=== PATIENT | male | born 1955 | race Caucasian/White ===

== ENCOUNTER 2017-04-27 14:50 | Inpatient (IN) | payer SELFPAY ==
[2017-04-27] MEDS ORDERED: IBUPROFEN 400 MG TABLET PO ONE (15:05)
[2017-04-27] MEDS ORDERED: IBUPROFEN 400 MG TABLET ONE (15:15)
[2017-04-27 15:38] LABS: Hematocrit 40.3 % (42.0-52.0); Hemoglobin 14.2 gm/dL (13.5-18.0); Mean Cell Volume 89.2 fl (78-100); Mean Corpuscular Hemoglobin 31.4 pg (27-31); Mean Corpuscular Hgb Conc 35.2 g/dl (32-36); Mean Platelet Volume 10.1 fl (6.0-9.5); Neutrophil # 11.5 K/mm3 (1.3-6.0); Platelet Count 221 K/mm3 (150-450); Red Blood Count 4.52 M/mm3 (4.7-6.0); Red Cell Distribution Width 12.7 % (11.5-14.0); White Blood Count 13.3 K/mm3 (4.0-10.5)
[2017-04-27] MEDS: SODIUM CHLORIDE IV PRN ×2 (15:44→16:52)
[2017-04-27 15:46] LABS: Albumin * 2.7 gm/dl (3.4-5.0); Bilirubin, Total 0.4 mg/dL (0.0-1.1); Ca. Corrected For Albumin 8.7 mg/dL (8.4-10.2); Potassium 3.6 mmol/L (3.4-4.6); Total Protein 7.1 gm/dL (6.2-8.2)
[2017-04-27 15:52] LABS: Anion Gap 14.5 mmol/L (6.8-13.8); Carbon Dioxide 23.1 mmol/L (24-32.6)
[2017-04-27] MEDS ORDERED: PIPERACILLIN SODIUM/TAZOBACTAM 3.375 GM in DEXTROSE 5 % IN WATER 100 ML IV ONE ×2 (16:57)
[2017-04-27] MEDS ORDERED: VANCOMYCIN HCL 1 GM in DEXTROSE 5 % IN WATER 250 ML IV ONE ×2 (18:35)
--- NOTE | 2017-04-27 18:42 | ERNOTE ---
Lower Extremity HPI - Narrative Date of Service: 04/27/17 - General Lower Extremities Pain: other: right - foot Time Seen by Provider: 04/27/17 15:33 Source: patient, family Exam Limitations: no limitations - Immun/Allergies/Home Medications Immunizations: IMMUNIZATION HX Immunizations Up to Date Yes Allergies/Adverse Reactions: Allergies Allergy/AdvReac Type Severity Reaction Status Date / Time No Known Allergies Allergy Unverified 04/27/17 15:03 Home Medications: HOME MEDICATIONS Enalapril Maleate [Vasotec] 5 mg PO DAILY 04/27/17 [Last Taken Unknown] - History of Present Illness Narrative: About one week ago, his boot wore an ulcer in the bottom of his distal right foot. He kept working. 2 days ago, it got worse, red and hot. He kept working. He began to get hot, cold, chilled, and sweating. He kept working. Today, even worse. His foot became very swollen. Now his temperature is 102. Occurred: other Location of Incident: home Method of Injury: Reports: other Reason for Fall: Reports: other - no fall Modifying Factors - (Improves): Reports: other - nothing Modifying Factors - (Worsens): Reports: other - walking Associated Symptoms: Reports: dizzy/light headedness, weakness Other Injuries: Reports: none Review of Systems - Review of Systems Constitutional: Present: fever, chills, diaphoresis, malaise EYE: Present: no symptoms reported ENT: Present: no symptoms reported Respiratory: Present: no symptoms reported Cardiology: Present: no symptoms reported Gastrointestinal/Abdominal: Present: no symptoms reported Genitourinary: Present: no symptoms reported Musculoskeletal: Present: no symptoms reported Skin: Present: See HPI Neurological: Present: dizziness/light-headedness, weakness Endocrine: Present: no symptoms reported Hematologic/Lymphatic: Present: no symptoms reported Psych: Present: no symptoms reported All Other Systems: All systems neg except as marked - Patient's Past Medical History Patient History - Medical: No pertinent hx Patient History - Cardiac/Respiratory: Hypertension Patient History - Cancer: No Hx of Cancer Patient History - Surgical Procedures: Appendectomy - Social History Smoking Status: Never smoker Have you smoked in the past 12 months: No - Immunizations Immunizations Up to Date: Yes Physical Exam - Physical Exam General Appearance: Present: wd/wn, alert, no apparent distress Head Exam: Present: normal inspection Eye Exam: Normal inspection: bilateral, PERRL: bilateral, EOMI: bilateral Ears, Nose, Throat: Present: normal ENT inspection Neck: Present: normal inspection, nontender Respiratory: Present: no respiratory distress, normal breath sounds Cardiovascular/Chest: Present: no murmur, tachycardia Gastrointestinal/Abdominal: Present: normal bowel sounds, nontender, nondistended, soft, no organomegaly Back Exam: Present: normal inspection Extremity Exam: Present: other - right distal foot very swollen, red and hot. ulcer, plantar surface, distal, over second and third metatarsal Neurological Exam: Present: alert, oriented, normal mood/affect Skin Exam: Present: normal color, warm/dry Lymphatic Exam: Present: no adenopathy ED Progress - Results and Orders Patient's Lab Results:: I have reviewed the patient's lab results. - Vital Signs Patient's Vital Signs:: I have reviewed the patient's vital signs. Vital Signs: Vital Signs 04/27/17 04/27/17 04/27/17 14:59 16:55 18:07 Temperature 38.6 C H 37.5 C 37.0 C Pulse Rate 127 H 105 H 92 Respiratory 14 16 16 Rate Blood Pressure 154/94 136/79 115/77 O2 Sat by Pulse 97 95 97 Oximetry - X-Ray X-Ray #1 X-Ray: foot Interpretation: Reviewed by me - osteomyelitis - Progress/Reassessment Chief Complaint: Foot Injury/Pain Progress Note-Subjective: 04/27/17 18:[address] Huntley who agreed to accept the patient as an acute admission. I spoke with Cristopher Caal manager combination ortho, who agreed to accept the patient as manager combination ortho consult. I spoke with the patient and his , who agreed to be admitted. Departure Clinical Impression: Osteomyelitis of right foot Qualifiers: Osteomyelitis type: other acute Qualified Code(s): M86.171 - Other acute osteomyelitis, right ankle and foot - Departure Disposition: [facility] Condition: Good
[2017-04-27] MEDS ORDERED: PIPERACILLIN SODIUM/TAZOBACTAM 3.375 GM in DEXTROSE 5 % IN WATER 100 ML IV SCH ×2 (18:45)
[2017-04-27] MEDS: NORMAL SALINE 3,000 ML IV PRN ×3 (19:21→21:31)
[2017-04-27] MEDS: ENOXAPARIN SODIUM 40 MG/0.4 ML SYRG SC SCH (20:19)
[2017-04-27] MEDS: ACETAMINOPHEN 325 MG TABLET PO PRN (20:19)
--- NOTE | 2017-04-27 20:36 | HP ---
Chief Complaint - Chief Complaint Date of Service: 04/27/17 Time of Service: 20:36 Chief Complaint: right foot osteomyelitis History of Present Illness: Johnny is a 61 year old male patient of Dr. Purvis with a PMH of HTN who presented to the ER today with c/o fever, chills and purulent drainage coming from right distal foot. States that feet became wet with pus coming out of the right distal foot, palm side, 1 week ago. patient attempted to treat at home with peroxide soaks. Patient denies any feet pain. States no medical insurance so did not seek medical care initially. Right distal foot continues to worsen, to the point the patient developed fevers and chills for the past 2 days. ER eval revealed wbc elevated at 13.3 with 86% neutrophils. esr 76, crp 14.3, lactic acid/procalcitonin wnl, cmp remarkable for ast 51, alt 96 and serum glucose 150. right foot xray shows diffuse soft tissue swelling of 2nd toe with plantar skin ulceration seen at base of 2nd toe and associated erosive changes of 2nd metatarsal head c/w osteomyelitis. Patient denies history of diabetes or diabetic neuropathy. Patient to be admitted for right toe osteomyelitis / right foot cellulitis and orthopaedic consult. - Patient's Past Medical History Patient History - Medical: No pertinent hx Patient History - Cardiac/Respiratory: Hypertension Patient History - Cancer: No Hx of Cancer Patient History - Surgical Procedures: Appendectomy - Family History Mother Family History - Medical: , Rheumatoid Arthritis Family History - Cardiac/Respiratory: CVA/Stroke Father Family History - Medical: - Social History Living Situations: alone Abuse History: No History of abuse Psych History: No pertinent hx Smoking Status: Never smoker Have you smoked in the past 12 months: No Do you dip or chew tobacco: No Patient requests Smoking Cessation Consult: No Initiate information on Smoking Cessation: No Alcohol Use: rarely Drug Use: none - Immunizations Immunizations Up to Date: Yes Review Of Systems (GEN) - Review of Systems Generalized/Overall Review: Present: No Symptoms Reported EENTM: Present: No Symptoms Reported Respiratory: Present: No Symptoms Reported Cardiac: Present: No Symptoms Reported Abdominal: Present: No Symptoms Reported Genitourinary: Present: No Symptoms Reported Musculoskeletal: Present: No Symptoms Reported Neurological: Present: No Symptoms Reported Skin: Present: Lesions, Other - ulceration on palm-side right foot with pus Endocrine: Present: No Symptoms Reported Misc: All systems neg except as marked Immunizations: IMMUNIZATION HX Immunizations Up to Date Yes Allergies/Adverse Reactions: Allergies Allergy/AdvReac Type Severity Reaction Status Date / Time No Known Allergies Allergy Unverified 04/27/17 15:03 Home Medications: HOME MEDICATIONS Enalapril Maleate [Vasotec] 5 mg PO DAILY 04/27/17 [Last Taken 04/27/17 06:00] Multivit-Min/FA/Lycopen/Lutein [Centrum Silver Men Tablet] 1 each PO DAILY 04/27 [Last Taken 04/26/17 20:30] Exam - Exam Vital Signs: Vital Signs - Last Taken Temp 36.4 C L 04/27/17 18:44 Pulse 99 04/27/17 18:44 Resp 20 04/27/17 18:44 BP 150/93 04/27/17 18:44 Pulse Ox 99 04/27/17 18:44 Constitutional: Present: Alert, Oriented x3, Cooperative, No distress ENT Exam: Present: hearing grossly normal Eye Exam: bilateral eye: normal inspection Neck: Present: full range of motion, supple Breasts: Present: Exam deferred Respiratory: Present: lungs clear, normal breath sounds, no respiratory distress Cardiovascular/Chest: Present: normal peripheral pulses, regular rate, rhythm, no chest tenderness Peripheral Pulses: dorsalis-pedis (R): 2+, dorsalis-pedis (L): 2+, radial (R): 2 +, radial (L): 2+ Abdomen: Present: soft, nontender, nondistended /Rectal: Present: Exam deferred Extremity: Present: no calf tenderness, pelvis stable Skin Exam: Present: warm/dry, no cyanosis, other - on palm side of right foot is 2.5 cm x 2.5 cm pus filled ulceration with surrounding erythema just below 2nd toe. Diagnostic Studies: Laboratory Results WBC 13.3 K/mm3 (4.0-10.5) H 04/27/17 15:10 RBC 4.52 M/mm3 (4.7-6.0) L 04/27/17 15:10 Hgb 14.2 gm/dL (13.5-18.0) 04/27/17 15:10 Hct 40.3 % (42.0-52.0) L 04/27/17 15:10 MCV 89.2 fl (78-100) 04/27/17 15:10 MCH 31.4 pg (27-31) H 04/27/17 15:10 MCHC 35.2 g/dl (32-36) 04/27/17 15:10 RDW 12.7 % (11.5-14.0) 04/27/17 15:10 Plt Count 221 K/mm3 (150-450) 04/27/17 15:10 MPV 10.1 fl (6.0-9.5) H 04/27/17 15:10 Immature Gran % (Auto) 1.60 % (0.001-0.429) H 04/27/17 15:10 Immature Gran # (Auto) 0.21 K/mm3 (0.000-0.0310) H 04/27/17 15:10 Neutrophils % 86.0 % (42-75.0) H 04/27/17 15:10 Lymphocytes % 4.8 % (20-51) L 04/27/17 15:10 Monocytes % 6.9 % (0.0-9) 04/27/17 15:10 Eosinophils % 0.3 % (0.0-3.0) 04/27/17 15:10 Basophils % 0.4 % (0.0-1.0) 04/27/17 15:10 Nucleated RBC % 0.0 k/mm3 (0-1) 04/27/17 15:10 Neutrophils # 11.5 K/mm3 (1.3-6.0) H 04/27/17 15:10 Lymphocytes # 0.6 k/mm3 (1.5-3.5) L 04/27/17 15:10 Monocytes # 0.9 k/mm3 (0.0-1.0) 04/27/17 15:10 Eosinophils # 0.0 k/mm3 (0.0-0.7) 04/27/17 15:10 Absolute Basophils 0.1 k/mm3 (0.0-0.1) 04/27/17 15:10 ESR 76 mm/hr (0-10) H 04/27/17 15:10 Sodium 135 mmol/L (132-142) 04/27/17 15:10 Plasma Sodium 136 mmol/L (130-142) 04/27/17 15:10 Potassium 3.6 mmol/L (3.4-4.6) 04/27/17 15:10 Chloride 101 mmol/L (97-106) 04/27/17 15:10 Carbon Dioxide 23.1 mmol/L (24-32.6) L 04/27/17 15:10 Anion Gap 14.5 mmol/L (6.8-13.8) H 04/27/17 15:10 BUN 15 mg/dL (6-23) 04/27/17 15:10 Creatinine 0.94 mg/dL (0.4-1.4) 04/27/17 15:10 Est GFR (Non-Af Amer) 87 mL/min (60-130) 04/27/17 15:10 BUN/Creatinine Ratio 16.0 (9.0-21.6) 04/27/17 15:10 Random Glucose 150 mg/dL (70-110) H 04/27/17 15:10 Lactic Acid, Venous 1.4 mmol/L (0.4-1.9) 04/27/17 15:10 Calcium 8.0 mg/dL (7.9-10.9) 04/27/17 15:10 Calcium Adj for Albumin 8.7 mg/dL (8.4-10.2) 04/27/17 15:10 Total Bilirubin 0.4 mg/dL (0.0-1.1) 04/27/17 15:10 AST 51 U/L (0-48) H 04/27/17 15:10 ALT 96 U/L (19-67) H 04/27/17 15:10 Alkaline Phosphatase 102 U/L (50-170) 04/27/17 15:10 C-Reactive Prot, Quant 14.3 mg/dL (0.0-0.9) H 04/27/17 15:10 Total Protein 7.1 gm/dL (6.2-8.2) 04/27/17 15:10 Albumin 2.7 gm/dl (3.4-5.0) L 04/27/17 15:10 Procalcitonin 0.27 ng/mL (0.05-0.50) 04/27/17 15:10 Assessment/Plan - Narrative Narrative: Osteomyelitis / cellulitis of right foot - awaiting ortho consult, appreciate their help. - wound culture done in ER shows no growth so far - antibiotics - vancomycin 1 gm iv q 12 hours - Day #1 - zosyn 3.375 mg iv q 8 hours - Day #1 - ? MRI of right foot - ? 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 - Meets SIRS criteria but NOT sepsis criteria - document/suggestion of new infection: soft tissue, bone/joint - SIRS criteria met: - hyperthermia: temp 38.6 - tachycardia: HR 127 in ER - Leukocytosis (wbc>12.0): wbc 13.3 - hyperglycemia in absence of DM: serum glucose 150 - NO additional criteria for Sepsis: lactic acid wnl, sbp drop was 39 ( needs to be >40), creatinine wnl, platelet count wnl, - no low blood pressures or low MAP. - chest xray not done (cannot assess for infiltrates), PT/PTT not done (cannot assess for coagulopathy) - denied foot pain to be since symptoms began, ? underlying undiagnosed diabetes - check hgba1c HTN - vital signs q 4 hours - cont enalapril 5 mg daily Code status: Full Code VTE: lovenox GI proph: protonix po. - Assessment/Plan (1) Osteomyelitis of right foot Problem: Acute Qualifiers: Osteomyelitis type: other acute Qualified Code(s): M86.171 - Other acute osteomyelitis, right ankle and foot (2) Cellulitis of right foot Problem: Acute (3) HTN (hypertension) Problem: Chronic Qualifiers: Hypertension type: essential hypertension Qualified Code(s): I10 - Essential (primary) hypertension
[2017-04-28] MEDS: NORMAL SALINE 1,000 ML IV PRN ×2 (00:04→18:12)
[2017-04-28] MEDS: PIPERACILLIN SODIUM/TAZOBACTAM 3.375 GM in DEXTROSE 5 % IN WATER 100 ML IV SCH ×6 (01:57→18:06)
[2017-04-28 05:55] LABS: Hematocrit 38.2 % (42.0-52.0); Hemoglobin 13.2 gm/dL (13.5-18.0); Mean Cell Volume 90.7 fl (78-100); Mean Corpuscular Hemoglobin 31.4 pg (27-31); Mean Corpuscular Hgb Conc 34.6 g/dl (32-36); Mean Platelet Volume 10.3 fl (6.0-9.5); Platelet Count 192 K/mm3 (150-450); Red Blood Count 4.21 M/mm3 (4.7-6.0); Red Cell Distribution Width 13.1 % (11.5-14.0); White Blood Count 15.3 K/mm3 (4.0-10.5)
[2017-04-28 05:57] LABS: Total Cells Counted 100
[2017-04-28 06:07] LABS: Band 20 % (0-2.0); Dohle Bodies Trace; Lymphocyte 6 % (20-51); Monocyte 1 % (0-9); Neutrophil 73 % (42-75); Neutrophil # 11.2 K/mm3 (1.3-6.0); Platelet Estimate Normal (NORMAL)
[2017-04-28 06:09] LABS: Albumin * 2.1 gm/dl (3.4-5.0); BUN/Creatinine Ratio 11.6 (9.0-21.6); Ca. Corrected For Albumin 8.3 mg/dL (8.4-10.2); Calcium * 7.1 mg/dL (7.9-10.9); Carbon Dioxide 23.6 mmol/L (24-32.6); Potassium 3.6 mmol/L (3.4-4.6); Total Protein 5.8 gm/dL (6.2-8.2)
[2017-04-28 06:43] LABS: Hemoglobin A1C 5.6 % (4.00-6.0)
--- NOTE | 2017-04-28 08:05 | PN ---
Subjective - Date and Time Seen Date: 04/28/17 Time: 06:30 Subjective Narrative: denies needs. states had chills overnight. Objective - Review of Systems Generalized/Overall Review: Reports: Chills, Malaise EENTM: Reports: No Symptoms Reported Respiratory: Reports: No Symptoms Reported Cardiac: Reports: No Symptoms Reported Abdominal: Reports: No Symptoms Reported Genitourinary Symptoms: Reports: No Symptoms Reported Musculoskeletal Complaints: Reports: No Symptoms Reported Neurological: Reports: No Symptoms Reported Skin: Reports: Lesions, Change in Color Endocrine: Reports: No Symptoms Reported Misc: All systems neg except as marked - Vitals Vitals: Last Vital Signs Temp 36.8 C 04/28/17 06:00 Pulse 111 H 04/28/17 06:00 Resp 18 04/28/17 06:00 BP 144/88 04/28/17 06:00 Pulse Ox 96 04/28/17 06:00 - Abnormal Lab Findings Abnormal Lab Findings: Abnormal Lab Results 04/28/17 04/28/17 Range/Units 05:30 05:30 WBC 15.3 H (4.0-10.5) K/mm3 RBC 4.21 L (4.7-6.0) M/mm3 Hgb 13.2 L (13.5-18.0) gm/dL Hct 38.2 L (42.0-52.0) % MCH 31.4 H (27-31) pg MPV 10.3 H (6.0-9.5) fl Band Neuts % (Manual) 20 H (0-2.0) % Lymphocytes % (Manual) 6 L (20-51) % Neutrophils # (Manual) 11.2 H (1.3-6.0) K/mm3 Lymphocytes # (Manual) 0.9 L (1.5-3.5) k/mm3 Chloride 107 H (97-106) mmol/L Carbon Dioxide 23.6 L (24-32.6) mmol/L Anion Gap 14.0 H (6.8-13.8) mmol/L Random Glucose 139 H (70-110) mg/dL Calcium 7.1 L (7.9-10.9) mg/dL Calcium Adj for Albumin 8.3 L (8.4-10.2) mg/dL ALT 95 H (19-67) U/L Total Protein 5.8 L (6.2-8.2) gm/dL Albumin 2.1 L (3.4-5.0) gm/dl - Exam Constitutional: Present: Alert, Oriented x3, Cooperative, No distress ENT Exam: Present: hearing grossly normal Neck: Present: full range of motion, supple Breasts: Present: Exam deferred Respiratory: Present: normal breath sounds, no respiratory distress, no accessory muscle use Cardiovascular/Chest: Present: normal peripheral pulses, regular rate, rhythm, no chest tenderness Abdomen: Present: soft, nontender, nondistended /Rectal: Present: Exam deferred Extremity: Present: normal range of motion, no calf tenderness Skin Exam: Present: warm/dry, no cyanosis, pallor, other - 2.5 cm x 2.5 cm ulceration on sole of right foot at bottom of 2nd toe, pus filled, with surrounding erythema and foul odor. Assessment/Plan Plan Narrative: Osteomyelitis / cellulitis of right foot - awaiting ortho consult, appreciate their help. - spoke with Cristopher with am, will order MRI of right foot to assess. - wound culture done in ER shows no growth so far - antibiotics - vancomycin 1 gm iv q 12 hours - Day #2 - zosyn 3.375 mg iv q 8 hours - Day #2 - ? 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 - ? gram stain - Meets SIRS criteria but NOT sepsis criteria (on admission ) - document/suggestion of new infection: soft tissue, bone/joint - SIRS criteria met: - hyperthermia: temp 38.6 - tachycardia: HR 127 in ER - Leukocytosis (wbc>12.0): wbc 13.3 - hyperglycemia in absence of DM: serum glucose 150 - NO additional criteria for Sepsis: lactic acid wnl, sbp drop was 39 ( needs to be >40), creatinine wnl, platelet count wnl, - no low blood pressures or low MAP. - chest xray not done (cannot assess for infiltrates), PT/PTT not done (cannot assess for coagulopathy) - denied foot pain to be since symptoms began, ? underlying undiagnosed diabetes - check hgba1c HTN - vital signs q 4 hours - cont enalapril 5 mg daily Code status: Full Code VTE: lovenox GI proph: protonix po. - Problems/Diagnosis (1) Osteomyelitis of right foot Problem: Acute Qualifiers: Osteomyelitis type: other acute Qualified Code(s): M86.171 - Other acute osteomyelitis, right ankle and foot (2) Cellulitis of right foot Problem: Acute (3) HTN (hypertension) Problem: Chronic Qualifiers: Hypertension type: essential hypertension Qualified Code(s): I10 - Essential (primary) hypertension
[2017-04-28] MEDS ORDERED: VANCOMYCIN HCL 1 GM in DEXTROSE 5 % IN WATER 250 ML IV SCH ×2 (08:15)
[2017-04-28] MEDS: ENALAPRIL MALEATE 5 MG TABLET PO SCH (08:20)
[2017-04-28] MEDS: PANTOPRAZOLE SODIUM 40 MG TABLET.EC PO SCH (08:23)
[2017-04-28] MEDS: SACCHAROMYCES BOULARDII 250 MG CAPSULE PO SCH ×2 (08:40→20:36)
[2017-04-28] MEDS: VANCOMYCIN HCL 1 GM in DEXTROSE 5 % IN WATER 250 ML IV SCH ×4 (10:00→10:01)
--- NOTE | 2017-04-28 10:42 | CONS ---
[facility] - General Date of Service: 04/28/17 Narrative: Mr. Palomino 7-year-old gentleman seen request of Dr. Huntley for concern of osteomyelitis possible abscess right foot. Patient reports about a week history of swelling and some drainage from the plantar aspect of his right foot. 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 He noted about a week ago some drainage from the plantar aspect of his foot. He reported no pain with this and Working. In the last 24-48 hours started developing fevers and not feeling well. Reports history of a traumatic injury to the foot 30 years ago when a cow stepped on it. He reports a chronic deformity of his second toe related to this. He reports in the past few years his great toe is encroached on to the second toe and started to cause some pressure irritation. He reports no previous history of draining ulcer and denies diabetes. - History of Present Illness Allergies/Adverse Reactions: Allergies No Known Allergies Allergy (Unverified 04/27/17 15:03) Home Medications: Home Medications Medication Instructions Recorded Last Taken Enalapril Maleate [Vasotec] 5 mg PO DAILY 04/27/17 04/27/17 06:00 Multivit-Min/FA/Lycopen/Lutein 1 each PO DAILY 04/27/17 04/26/17 20:30 [Centrum Silver Men Tablet] - Patient's Past Medical History Patient History - Medical: No pertinent hx Patient History - Cardiac/Respiratory: Hypertension Patient History - Cancer: No Hx of Cancer Patient History - Surgical Procedures: Appendectomy - Family History Mother Family History - Medical: , Rheumatoid Arthritis Family History - Cardiac/Respiratory: CVA/Stroke Father Family History - Medical: - Social History Living Situations: alone Abuse History: No History of abuse Psych History: No pertinent hx Smoking Status: Never smoker Have you smoked in the past 12 months: No Do you dip or chew tobacco: No Patient requests Smoking Cessation Consult: No Initiate information on Smoking Cessation: No Alcohol Use: rarely Drug Use: none - Immunizations Immunizations Up to Date: Yes Medications - Medications Current Medications: Current Medications Acetaminophen (Tylenol) 650 mg PO QID PRN PRN Reason: Mild Pain Stop: 05/27/17 18:45 Last Admin: 04/27/17 20:19 Dose: 650 mg Enalapril Maleate (Vasotec) 5 mg PO DAILY [facility] Stop: 05/28/17 09:01 Last Admin: 04/28/17 08:20 Dose: 5 mg Enoxaparin Sodium (Lovenox) 40 mg SC Q24H [facility] Stop: 05/27/17 18:46 Last Admin: 04/27/17 20:19 Dose: 40 mg Sodium Chloride (Sodium Chloride 0.9%) 3,000 mls @ 999 mls/hr IV .Q3H1M PRN PRN Reason: HYDRATION Stop: 05/27/17 15:26 Last Infusion: 04/28/17 00:32 Dose: Infused Piperacillin Sod/Tazobactam (Sod 3.375 gm/ Dextrose/Water) 100 mls @ 25 mls/hr IV Q8H [facility] PRN Reason: Protocol Stop: 05/28/17 02:01 Last Admin: 04/28/17 01:57 Dose: 25 mls/hr Sodium Chloride (Sodium Chloride 0.9%) 1,000 mls @ 75 mls/hr IV .[id number] PRN PRN Reason: HYDRATION Stop: 05/27/17 23:56 Last Admin: 04/28/17 00:04 Dose: 75 mls/hr Vancomycin HCl 1 gm/ Dextrose/ (Water) 250 mls @ 140 mls/hr IV Q12H [facility] PRN Reason: Protocol Stop: 05/28/17 08:16 Last Admin: 04/28/17 08:19 Dose: 140 mls/hr Pantoprazole Sodium (Protonix) 40 mg PO DAILY@0700 [facility] Stop: 05/28/17 07:01 Last Admin: 04/28/17 08:23 Dose: 40 mg Saccharomyces Boulardii (Florastor) 250 mg PO BID [facility] Stop: 05/28/17 09:01 Last Admin: 04/28/17 08:40 Dose: 250 mg Physical Examination - Exam Narrative: Right foot shows significant swelling in the forefoot. Erythema and warmth noted and skin is boggy. Second toe with deformity and marked in swelling. Some sloughing of skin in the web space between second third toe. Plantar aspect of the foot shows small ulceration the base of second metatarsal head and sloughing of skin with apparent purulent material under the skin. With palpation of foot patient reports no pain. Cannot appreciate a dorsalis pedis pulse with the swelling. X-rays reviewed show advanced degenerative changes of the first metatarsal phalangeal joint, dislocation of the second metatarsal phalangeal joint which patient reports to be chronic, mild erosive changes of the metatarsal head. Mr. Chahal white count is elevated about 15,000, CRP of 14.3, sedimentation rate of 76. Hemoglobin A1c has been ordered but is pending. An MRI is been ordered as well but has not been done at this point time. Vital Signs: Vital Signs - Last Taken Temp 36.8 C 04/28/17 06:00 Pulse 111 H 04/28/17 08:20 Resp 18 04/28/17 06:00 BP 144/88 04/28/17 08:20 Pulse Ox 96 04/28/17 06:00 O2 Oxygen Delivery Method Room Air - Results and Findings: Lab/Microbiology results last 24 hrs: Abnormal/Pending Laboratory Last 24 HRS 04/28/17 04/28/17 05:30 05:30 WBC 15.3 H RBC 4.21 L Hgb 13.2 L Hct 38.2 L MCH 31.4 H MPV 10.3 H Band Neuts % (Manual) 20 H Lymphocytes % (Manual) 6 L Neutrophils # (Manual) 11.2 H Lymphocytes # (Manual) 0.9 L Chloride 107 H Carbon Dioxide 23.6 L Anion Gap 14.0 H Random Glucose 139 H Calcium 7.1 L Calcium Adj for Albumin 8.3 L ALT 95 H Total Protein 5.8 L Albumin 2.1 L - Assessments/Findings (1) Cellulitis of right foot Diagnosis(s): Mr. Palomino is currently on Zosyn and vancomycin cover for infection. Pending results of MRI if no abscess to treat with IV antibiotics and may consult Dr. Chapa for wound care. Plan pending MRI. Problem: Acute
[2017-04-28] MEDS ORDERED: LORazepam 2 MG/ML DISP.SYRIN IV STA (13:24)
[2017-04-28] MEDS ORDERED: LORazepam 2 MG/ML DISP.SYRIN ONE (13:30)
[2017-04-28] MEDS: ENOXAPARIN SODIUM 40 MG/0.4 ML SYRG SC SCH (18:08)
[2017-04-28] MEDS: VANCOMYCIN HCL 1.5 GM in DEXTROSE 5 % IN WATER 500 ML IV SCH ×2 (20:37)
[2017-04-29] MEDS: PIPERACILLIN SODIUM/TAZOBACTAM 3.375 GM in DEXTROSE 5 % IN WATER 100 ML IV SCH ×6 (02:34→17:21)
[2017-04-29] MEDS: PANTOPRAZOLE SODIUM 40 MG TABLET.EC PO SCH (06:43)
[2017-04-29] MEDS: VANCOMYCIN HCL 1.5 GM in DEXTROSE 5 % IN WATER 500 ML IV SCH ×4 (06:48→18:49)
[2017-04-29] MEDS: NORMAL SALINE 1,000 ML IV PRN (06:58)
[2017-04-29] MEDS: ENALAPRIL MALEATE 5 MG TABLET PO SCH (09:49)
[2017-04-29] MEDS: SACCHAROMYCES BOULARDII 250 MG CAPSULE PO SCH ×2 (09:49→20:24)
[2017-04-30] MEDS: PIPERACILLIN SODIUM/TAZOBACTAM 3.375 GM in DEXTROSE 5 % IN WATER 100 ML IV SCH ×6 (02:11→17:07)
[2017-04-30] MEDS: NORMAL SALINE 1,000 ML IV PRN ×2 (04:48→15:55)
[2017-04-30] MEDS: VANCOMYCIN HCL 1.5 GM in DEXTROSE 5 % IN WATER 500 ML IV SCH ×4 (07:13→18:29)
[2017-04-30] MEDS: PANTOPRAZOLE SODIUM 40 MG TABLET.EC PO SCH (07:13)
[2017-04-30] MEDS: SACCHAROMYCES BOULARDII 250 MG CAPSULE PO SCH ×2 (09:19→20:24)
[2017-04-30] MEDS: ENALAPRIL MALEATE 5 MG TABLET PO SCH (09:19)
--- NOTE | 2017-04-30 10:31 | PREOP NOTE ---
Preoperative Progress Note - Preoperative Changes Changes noted since H&P was completed.: Plan for I and D of foot abscess.
--- NOTE | 2017-04-30 10:40 | PN ---
Subjective - Date and Time Seen Date: 04/29/17 Time: 11:15 Subjective Narrative: Patient unable to undergo an MRI on 04/28 as he was unable to lie still with lorazepam. Planning to undergo an MRI today with sedation with anesthesia later in the afternoon. X-ray of foot does show osteomyelitis. Patient complains of minimal pain. Objective - Review of Systems Respiratory: Denies: Cough, Shortness of Breath Cardiac: Denies: Chest Pain - Vitals Vitals: 04/29/17 10:47 Temperature 36.8 C Pulse Rate 88 Resp. Rate 18 Blood Pressure 152/86 O2 sat 94 % - Exam Constitutional: Present: Middle aged, Obese, Looks Older than stated age - in NAD ENT Exam: Present: hearing grossly normal, moist mucous membranes Respiratory: Present: lungs clear, no accessory muscle use Cardiovascular/Chest: Present: regular rate, rhythm. Absent: tachycardia Abdomen: Present: Normal bowel sounds, soft, nontender, obese Extremity: Present: other - RT lower leg and foot markedly swollen, warm. Redness present over the dorsal aspect especially the second toe with serous drainage. Skin Exam: Present: normal color, warm/dry Assessment/Plan Plan Narrative: 1. Osteomyelitis right foot: MRI of foot pending this afternoon. On vancomycin 1 g IV every 12 hours and piperacillin/tazobactam 3.375 mg IV Q6H. Ortho consult. 2. Hypertension: Chronic and stable. Lisinopril 10 mg at bedtime. 3. DVT prophylaxis On enoxaparin 40 mg SQ daily. CODE STATUS: Full code.
[2017-04-30] MEDS ORDERED: NORMAL SALINE 1,000 ML IV ONE (14:10)
[2017-04-30] MEDS ORDERED: RINGER'S SOLUTION,LACTATED 1,000 ML IV ONE (14:35)
[2017-04-30] MEDS ORDERED: BUPIVACAINE HCL 50 ML VIAL IJ ONE ×2 (14:50)
[2017-04-30] MEDS: CHOLECALCIFEROL 5,000 UNIT TABLET PO SCH (17:08)
[2017-04-30] MEDS: LISINOPRIL 10 MG TABLET PO SCH (20:24)
[2017-05-01] MEDS: PIPERACILLIN SODIUM/TAZOBACTAM 3.375 GM in DEXTROSE 5 % IN WATER 100 ML IV SCH ×6 (01:01→17:29)
[2017-05-01] MEDS: PANTOPRAZOLE SODIUM 40 MG TABLET.EC PO SCH (06:48)
[2017-05-01] MEDS: VANCOMYCIN HCL 1.5 GM in DEXTROSE 5 % IN WATER 500 ML IV SCH ×4 (06:48→18:26)
--- NOTE | 2017-05-01 08:01 | PN ---
Subjective - Date and Time Seen Date: 05/01/17 Time: 07:58 Subjective Narrative: Denies any concerns. He is sitting up in a chair eating his breakfast. He reports no increased pain, fevers or chills. Objective - Vitals Vitals: Last Vital Signs Temp 36.8 C 05/01/17 01:45 Pulse 80 05/01/17 05:37 Resp 16 05/01/17 05:37 BP 130/75 05/01/17 05:37 Pulse Ox 94 05/01/17 05:37 - Exam Exam Narrative: Right lower extremity: Dressings are dry and toes are pink and warm. Brisk cap refill. He's able to flex and extend his toes to limited ability secondary to the dressings. Sensation is stable Constitutional: Present: Alert, Oriented x3 Assessment/Plan - Problems/Diagnosis (1) Osteomyelitis of right foot Problem: Acute Qualifiers: Osteomyelitis type: other acute Qualified Code(s): M86.171 - Other acute osteomyelitis, right ankle and foot Narrative: He is okay to weight-bear on his heel in a postop shoe. He is to keep his foot clean and dry. We will plan to change his dressings tomorrow as he is a Isacc drain in place at this point. Continue with antibiotics. Intraoperative cultures were obtained and we will wait culture results. Labs will be repeated in the morning. From orthopedic standpoint he should be able to go home in the next 1-2 days.
[2017-05-01] MEDS: SACCHAROMYCES BOULARDII 250 MG CAPSULE PO SCH ×2 (09:43→20:15)
[2017-05-01] MEDS: CHOLECALCIFEROL 5,000 UNIT TABLET PO SCH (09:43)
[2017-05-01] MEDS: LISINOPRIL 10 MG TABLET PO SCH (09:49)
[2017-05-02] MEDS: PIPERACILLIN SODIUM/TAZOBACTAM 3.375 GM in DEXTROSE 5 % IN WATER 100 ML IV SCH ×6 (01:48→17:30)
[2017-05-02] MEDS ORDERED: VANCOMYCIN HCL LEVEL XX ONE (06:30)
[2017-05-02 06:41] LABS: Hematocrit 41.3 % (42.0-52.0); Hemoglobin 14.4 gm/dL (13.5-18.0); Mean Cell Volume 89.4 fl (78-100); Mean Corpuscular Hemoglobin 31.2 pg (27-31); Mean Corpuscular Hgb Conc 34.9 g/dl (32-36); Mean Platelet Volume 9.2 fl (6.0-9.5); Platelet Count 261 K/mm3 (150-450); Red Blood Count 4.62 M/mm3 (4.7-6.0); Red Cell Distribution Width 13.2 % (11.5-14.0); White Blood Count 11.3 K/mm3 (4.0-10.5)
[2017-05-02 06:55] LABS: CRP 4.2 mg/dL (0.0-0.9); Vancomycin Trough 15.1 mcg/mL (10.0-20.0)
[2017-05-02] MEDS: PANTOPRAZOLE SODIUM 40 MG TABLET.EC PO SCH (07:01)
[2017-05-02] MEDS: VANCOMYCIN HCL 1.5 GM in DEXTROSE 5 % IN WATER 500 ML IV SCH ×4 (08:27→19:19)
--- NOTE | 2017-05-02 09:03 | PN ---
Subjective - Date and Time Seen Date: 05/02/17 Time: 09:01 Subjective Narrative: Denies any concerns. He is sitting up in a chair with some right calf pain. He reports no fevers or chills. Objective - Vitals Vitals: Last Vital Signs Temp 36.4 C L 05/02/17 07:27 Pulse 84 05/02/17 07:27 Resp 16 05/02/17 07:27 BP 162/98 05/02/17 07:27 Pulse Ox 93 05/02/17 07:27 - Abnormal Lab Findings Abnormal Lab Findings: Abnormal Lab Results 05/02/17 05/02/17 05/02/17 Range/Units 06:35 06:35 06:35 WBC 11.3 H (4.0-10.5) K/mm3 RBC 4.62 L (4.7-6.0) M/mm3 Hct 41.3 L (42.0-52.0) % MCH 31.2 H (27-31) pg ESR 64 H (0-10) mm/hr C-Reactive Prot, Quant 4.2 H (0.0-0.9) mg/dL - Exam Exam Narrative: Right foot: Dressings changed, minimal bloody drainage no gross purulent drainage, significantly decreased swelling and no signs of recurrent abscess, minimal odor, moving toes, brisk cap refill, no signs of gross ongoing infection Assessment/Plan - Problems/Diagnosis (1) Osteomyelitis of right foot Problem: Acute Qualifiers: Osteomyelitis type: other acute Qualified Code(s): M86.171 - Other acute osteomyelitis, right ankle and foot Narrative: From my standpoint he should be continued on antibiotics per primary care's recommendations for 30 days. He needs to keep his foot clean and dry. She changes dressings every 1-2 days with dry gauze and Coban or Elton wrap. I can see him back in approximately 7-10 days post discharge. If his ultrasound is negative and medicine feels he is stable, from an orthopedic standpoint he can probably go home tomorrow.
[2017-05-02] MEDS: SACCHAROMYCES BOULARDII 250 MG CAPSULE PO SCH ×2 (09:04→20:15)
[2017-05-02] MEDS: LISINOPRIL 10 MG TABLET PO SCH (09:04)
[2017-05-02] MEDS: CHOLECALCIFEROL 5,000 UNIT TABLET PO SCH (09:05)
--- NOTE | 2017-05-02 14:30 | PN ---
Subjective - Date and Time Seen Date: 04/30/17 Time: 10:00 Subjective Narrative: Patient is on surgery schedule later this afternoon. Overall condition unchanged. Objective - Review of Systems Generalized/Overall Review: Denies: Weakness, Chills, Fever Respiratory: Denies: Cough, Shortness of Breath Cardiac: Denies: Chest Pain, Edema - Vitals Vitals: Vital Signs 04/30/17 09:00 Temperature 36.7 C Pulse Rate 98 Respiratory 16 Rate Blood Pressure 148/92 O2 Sat by Pulse 97 Oximetry - Exam Constitutional: Present: Middle aged, Obese, Looks Older than stated age - in NAD ENT Exam: Present: hearing grossly normal, moist mucous membranes Respiratory: Present: lungs clear. Absent: no accessory muscle use Cardiovascular/Chest: Present: regular rate, rhythm. Absent: tachycardia Abdomen: Present: Normal bowel sounds, nondistended, obese Extremity: Present: other - RT leg swelling present c/w cellulitis. RT foot osteomyelitis present. Skin Exam: Present: normal color, warm/dry Assessment/Plan Plan Narrative: 1. Osteomyelitis of RT foot: Scheduled for surgery this afternoon. Continue IV antibiotics. 2. Hypertension: Continue lisinopril 10 mg PO HS. 3. DVT prophylaxis: Enoxaparin 40 mg SQ daily. Full code. 4. Obesity: BMI 33.0
--- NOTE | 2017-05-02 14:42 | PN ---
Subjective - Date and Time Seen Date: 05/01/17 Time: 10:30 Objective Objective Narrative: Overall feels better; swelling in right lower extremity has diminished. Transferring with postop shoe. Afebrile - Review of Systems Generalized/Overall Review: Denies: Chills, Fever Respiratory: Denies: Cough, Shortness of Breath Cardiac: Denies: Chest Pain, Edema - Vitals Vitals: Vital Signs 05/01/17 09:00 Temperature 36.7 C Respiratory 18 Rate Blood Pressure 145/101 O2 Sat by Pulse 97 Oximetry - Exam Constitutional: Present: Middle aged, Obese, Looks Older than stated age - in NAD ENT Exam: Present: hearing grossly normal, moist mucous membranes Neck: Present: normal inspection, trachea midline Respiratory: Present: lungs clear, no accessory muscle use Cardiovascular/Chest: Present: regular rate, rhythm, no murmur. Absent: tachycardia Abdomen: Present: Normal bowel sounds, soft, nontender, nondistended, obese Extremity: Present: normal range of motion, normal inspection, other - RT lower leg swelling/ redness has improved. Skin Exam: Present: normal color, warm/dry Assessment/Plan Plan Narrative: 1. S/P irrigation and debridement of right foot and excision of second metatarsal head: POD # 1. Continue antibiotics. Await wound cultures. Possible discharge in 1-2 days. 2. Hypertension: Continue lisinopril 10 mg at bedtime. 3. Obesity: BMI 33.0 4. DVT prophylaxis: Enoxaparin 40 mg subcutaneous daily Full code.
[2017-05-03] MEDS: PIPERACILLIN SODIUM/TAZOBACTAM 3.375 GM in DEXTROSE 5 % IN WATER 100 ML IV SCH ×2 (01:26)
[2017-05-03] MEDS: VANCOMYCIN HCL 1.5 GM in DEXTROSE 5 % IN WATER 500 ML IV SCH ×2 (07:09)
[2017-05-03] MEDS: PANTOPRAZOLE SODIUM 40 MG TABLET.EC PO SCH (07:16)
--- NOTE | 2017-05-03 08:19 | PN ---
Subjective - Date and Time Seen Date: 05/03/17 Time: 08:14 Subjective Narrative: Patient afebrile. Objective - Review of Systems Generalized/Overall Review: Denies: Chills, Fever EENTM: Reports: Ear Discharge Respiratory: Denies: Cough, Shortness of Breath Cardiac: Denies: Chest Pain, Palpitations Abdominal: Denies: Nausea, Vomiting Genitourinary Symptoms: Denies: Urgency, Frequency Musculoskeletal Complaints: Reports: Joint Pain - Vitals Vitals: Last Vital Signs Temp 36.7 C 05/03/17 07:07 Pulse 94 05/03/17 07:07 Resp 18 05/03/17 07:07 BP 150/94 05/03/17 07:07 Pulse Ox 94 05/03/17 07:07 - Exam Constitutional: Present: Alert, Oriented x3, Cooperative ENT Exam: Present: hearing grossly normal Neck: Present: supple Breasts: Present: Exam deferred Respiratory: Present: normal breath sounds, No rales, No wheezing Cardiovascular/Chest: Present: regular rate, rhythm, no JVD, no murmur Abdomen: Present: Normal bowel sounds, soft, nontender, nondistended Extremity: Present: no calf tenderness Assessment/Plan - Problems/Diagnosis (1) Superficial phlebitis and thrombophlebitis of right lower extremity Problem: Acute Narrative: continue with DVT prohylactic and antibiotics, (2) Cellulitis of right foot Problem: Acute Narrative: continue IV antibiotics. (3) Osteomyelitis of right foot Problem: Acute Qualifiers: Osteomyelitis type: other acute Qualified Code(s): M86.171 - Other acute osteomyelitis, right ankle and foot Narrative: culture on 05/01 growing Enterococcus feacalis. Will d/c IV Vanco and Zosyn. Start IV Unasyn. (4) HTN (hypertension) Problem: Chronic Qualifiers: Hypertension type: essential hypertension Qualified Code(s): I10 - Essential (primary) hypertension
[2017-05-03] MEDS: SACCHAROMYCES BOULARDII 250 MG CAPSULE PO SCH ×2 (08:50→20:47)
[2017-05-03] MEDS: LISINOPRIL 10 MG TABLET PO SCH (08:50)
[2017-05-03] MEDS: CHOLECALCIFEROL 5,000 UNIT TABLET PO SCH (08:50)
[2017-05-03] MEDS: AMPICILLIN SODIUM/SULBACTAM NA 1.5 GM in NORMAL SALINE 100 ML IV SCH ×3 (09:34→20:47)
--- NOTE | 2017-05-03 11:23 | PN ---
Subjective - Date and Time Seen Date: 05/03/17 Time: 11:21 Subjective Narrative: Denies any concerns. He is sitting up in a chair - previous US negative for DVT. He reports no fevers or chills. Objective - Vitals Vitals: Last Vital Signs Temp 36.4 C L 05/03/17 10:09 Pulse 96 05/03/17 10:09 Resp 18 05/03/17 10:09 BP 149/90 05/03/17 10:09 Pulse Ox 94 05/03/17 10:09 - Exam Exam Narrative: Right foot dressing changed- mild swelling, mild serous drainage, no gross sign of recurrence, no loculated fluid Assessment/Plan Plan Narrative: Nursing to start dressing changes and instruct for home - 4x4, joshua gray every other day. OK to dc home on antibiotics when ok with medicine. - Problems/Diagnosis (1) Osteomyelitis of right foot Problem: Acute Qualifiers: Osteomyelitis type: other acute Qualified Code(s): M86.171 - Other acute osteomyelitis, right ankle and foot
[2017-05-03] MEDS: ACETAMINOPHEN 325 MG TABLET PO PRN (20:47)
[2017-05-04] MEDS: KETOROLAC TROMETHAMINE 15 MG/ML VIAL IV PRN ×2 (00:29→06:48)
[2017-05-04] MEDS: AMPICILLIN SODIUM/SULBACTAM NA 1.5 GM in NORMAL SALINE 100 ML IV SCH ×2 (03:18→08:08)
[2017-05-04] MEDS: PANTOPRAZOLE SODIUM 40 MG TABLET.EC PO SCH (06:47)
[2017-05-04] MEDS ORDERED: METHYLPREDNISOLONE SOD SUCC/PF 40 MG/ML VIAL IV STA (07:55)
[2017-05-04] MEDS ORDERED: diphenhydrAMINE HCL 50 MG/ML VIAL IV STA (07:56)
--- NOTE | 2017-05-04 08:01 | PN ---
Subjective - Date and Time Seen Date: 05/04/17 Time: 07:56 Subjective Narrative: Patient developed rash and urticaria. new medicine started was Unasyn per sensitivity. Objective - Review of Systems Generalized/Overall Review: Denies: Chills, Fever EENTM: Reports: No Symptoms Reported Respiratory: Denies: Cough, Shortness of Breath Cardiac: Denies: Chest Pain, Palpitations Abdominal: Denies: Nausea, Vomiting Genitourinary Symptoms: Denies: Urgency, Frequency Musculoskeletal Complaints: Reports: Joint Pain Skin: Reports: Rash, Other - urticaria - Vitals Vitals: Last Vital Signs Temp 36.7 C 05/04/17 06:33 Pulse 104 H 05/04/17 06:33 Resp 20 05/04/17 06:33 BP 155/94 05/04/17 06:33 Pulse Ox 94 05/04/17 06:33 - Exam Constitutional: Present: Alert, Oriented x3, Cooperative ENT Exam: Present: hearing grossly normal Neck: Present: supple Breasts: Present: Exam deferred Respiratory: Present: normal breath sounds, No rales, No wheezing Cardiovascular/Chest: Present: regular rate, rhythm, no JVD, no murmur Abdomen: Present: Normal bowel sounds, soft, nontender, nondistended Extremity: Present: no pedal edema, no calf tenderness Skin Exam: Present: skin rash, other - urticaria Assessment/Plan - Problems/Diagnosis (1) Urticarial rash Problem: Acute Narrative: likely due to Unasyn. Will d/c Unasyn. Patient says he was never PCN allergic before . will give IV benadryl and Soulmedrol. (2) Superficial phlebitis and thrombophlebitis of right lower extremity Problem: Acute Narrative: continue with IV antibiotics. (3) Cellulitis of right foot Problem: Acute (4) Osteomyelitis of right foot Problem: Acute Qualifiers: Osteomyelitis type: other acute Qualified Code(s): M86.171 - Other acute osteomyelitis, right ankle and foot Narrative: Enterococcus feacalis on cuture. will d/c Unasyn. He was on IV zosyn before but did not have any reaction to it. It must have sensitized him. Will start him back IV vanco . Cubicin (daptomycin) is very expensive and he does not have insurance. Ortho recommends 4 weeks of antibiotics. (5) HTN (hypertension) Problem: Chronic Qualifiers: Hypertension type: essential hypertension Qualified Code(s): I10 - Essential (primary) hypertension
[2017-05-04] MEDS: LISINOPRIL 10 MG TABLET PO SCH (08:08)
[2017-05-04] MEDS: CHOLECALCIFEROL 5,000 UNIT TABLET PO SCH (08:08)
[2017-05-04] MEDS: SACCHAROMYCES BOULARDII 250 MG CAPSULE PO SCH ×2 (08:08→20:27)
[2017-05-04] MEDS: VANCOMYCIN HCL 1.5 GM in DEXTROSE 5 % IN WATER 500 ML IV SCH ×4 (08:56→20:21)
[2017-05-04] MEDS: ACETAMINOPHEN 325 MG TABLET PO PRN (22:43)
[2017-05-05 05:56] LABS: Hematocrit 42.6 % (42.0-52.0); Hemoglobin 14.5 gm/dL (13.5-18.0); Mean Cell Volume 89.9 fl (78-100); Mean Corpuscular Hemoglobin 30.6 pg (27-31); Mean Platelet Volume 9.8 fl (6.0-9.5); Platelet Count 254 K/mm3 (150-450); Red Blood Count 4.74 M/mm3 (4.7-6.0); Red Cell Distribution Width 13.2 % (11.5-14.0); White Blood Count 25.9 K/mm3 (4.0-10.5)
[2017-05-05 06:02] LABS: Total Cells Counted 100
[2017-05-05 06:06] LABS: Anion Gap 12.8 mmol/L (6.8-13.8); BUN/Creatinine Ratio 20.5 (9.0-21.6); CRP 17.2 mg/dL (0.0-0.9); Calcium * 8.2 mg/dL (7.9-10.9); Carbon Dioxide 26.9 mmol/L (24-32.6); Estimated Creat Clear 65.3; Potassium 3.7 mmol/L (3.4-4.6)
[2017-05-05 06:30] LABS: Band 7 % (0-2.0); Immature Granulocyte 2 (0-1); Lymphocyte 2 % (20-51); Monocyte 2 % (0-9); Neutrophil 87 % (42-75); Neutrophil # 22.5 K/mm3 (1.3-6.0)
[2017-05-05 06:31] LABS: Platelet Estimate Normal (NORMAL); RBC Morphology Normal (NORMAL); Toxic Granulation Trace
[2017-05-05] MEDS: PANTOPRAZOLE SODIUM 40 MG TABLET.EC PO SCH (06:48)
[2017-05-05] MEDS: ACETAMINOPHEN 325 MG TABLET PO PRN ×4 (06:51→23:28)
[2017-05-05] MEDS: SACCHAROMYCES BOULARDII 250 MG CAPSULE PO SCH ×2 (08:46→21:31)
[2017-05-05] MEDS: LISINOPRIL 10 MG TABLET PO SCH (08:46)
[2017-05-05] MEDS: CHOLECALCIFEROL 5,000 UNIT TABLET PO SCH (08:46)
[2017-05-05] MEDS: LORATADINE 10 MG TABLET PO SCH (08:46)
[2017-05-05] MEDS: VANCOMYCIN HCL 1.5 GM in DEXTROSE 5 % IN WATER 500 ML IV SCH ×4 (08:50→21:34)
[2017-05-05] MEDS ORDERED: NORMAL SALINE 1,000 ML IV ONE ×2 (13:18→15:42)
[2017-05-05] MEDS ORDERED: diphenhydrAMINE HCL 50 MG/ML VIAL IV ONE (13:32)
[2017-05-05] MEDS: LEVOFLOXACIN/D5W 750 MG/150 ML BAG IV SCH (13:38)
[2017-05-05] MEDS: FAMOTIDINE 20 MG in DEXTROSE 5 % IN WATER 100 ML IV SCH ×2 (16:36)
[2017-05-05] MEDS: NORMAL SALINE 1,000 ML IV PRN (19:40)
--- NOTE | 2017-05-05 19:55 | PN ---
Subjective - Date and Time Seen Date: 05/05/17 Time: 19:42 Subjective Narrative: Patient spiked temp 38.5C, tachycardic 135/m, associated with chills and fever early in the morning and afternoon. C/O joint pains especially on the right side. Objective - Review of Systems Generalized/Overall Review: Reports: Weakness, Chills, Fever Respiratory: Denies: Cough, Shortness of Breath Cardiac: Reports: Palpitations. Denies: Chest Pain, Edema Abdominal: Reports: Nausea, Vomiting - Vitals Vitals: Vital Signs Temp 37.3 C 05/05/17 19:20 Pulse 120 H 05/05/17 19:20 Resp 20 05/05/17 19:20 BP 108/65 05/05/17 19:20 Pulse Ox 95 05/05/17 19:20 - Abnormal Lab Findings Abnormal Lab Findings: Laboratory Tests 05/05/17 05:52 WBC 25.9 H D Hgb 14.5 Hct 42.6 Plt Count 254 Neutrophils % (Manual) 87 H Band Neuts % (Manual) 7 H 05/05/17 05:52 Plasma Sodium 136 Potassium 3.7 Chloride 99 Carbon Dioxide 26.9 BUN 27 H D Creatinine 1.32 Est GFR (Non-Af Amer) 59 L D Random Glucose 179 H Calcium 8.2 05/05/17 05/05/17 05:52 14:33 ESR 64 H Troponin I 0.032 C-Reactive Prot, Quant 17.2 H - EKG/Xray Findings EKG read: Reviewed by me - sinus tachycardia 135/min, with nonspecific ST-T wave changes - Exam Constitutional: Present: Middle aged, Obese, Looks Older than stated age - looks flushed ENT Exam: Present: hearing grossly normal, dry mucous membranes Neck: Present: normal inspection, trachea midline Respiratory: Present: lungs clear, no accessory muscle use Cardiovascular/Chest: Present: regular rate, rhythm, tachycardia. Absent: systolic murmur Abdomen: Present: Normal bowel sounds, soft, nontender, obese Extremity: Present: other - S/P second metatarsal head resection and I&D. Some swelling present on dorsal aspect of foot improved from before. Assessment/Plan Plan Narrative: 1. Osteomyelitis of RT foot: S/P irrigation and debridement of right foot and excision of second metatarsal head: POD # 6 Bone biopsy negative. Patient spiked a temperature 38.5C, WBC 25.9K CRP 17.2 today. Blood cultures 2 done. Levaquin 750 mg IV daily started along with vancomycin IV. Discussed with Dr. Vasquez[ID with [facility]] in detail. If no improvement in next 24-48 hours; consider transfer. 2. Hypertension: Continue lisinopril 10 mg at bedtime. 3. Obesity: BMI 33.0 4. DVT prophylaxis: Enoxaparin 40 mg subcutaneous daily Full code.
[2017-05-05] MEDS ORDERED: VANCOMYCIN HCL LEVEL XX ONE (20:00)
[2017-05-06] MEDS: NORMAL SALINE 1,000 ML IV PRN ×3 (02:16→19:15)
[2017-05-06 06:17] LABS: Albumin * 1.8 gm/dl (3.4-5.0); Anion Gap 15.3 mmol/L (6.8-13.8); BUN/Creatinine Ratio 18.1 (9.0-21.6); Bilirubin, Total 0.7 mg/dL (0.0-1.1); Ca. Corrected For Albumin 8.8 mg/dL (8.4-10.2); Calcium * 7.4 mg/dL (7.9-10.9); Carbon Dioxide 22.2 mmol/L (24-32.6); Potassium 3.5 mmol/L (3.4-4.6); Total Protein 6.2 gm/dL (6.2-8.2)
[2017-05-06] MEDS: FAMOTIDINE 20 MG in DEXTROSE 5 % IN WATER 100 ML IV SCH ×4 (06:25→17:00)
[2017-05-06 06:29] LABS: CRP 29.4 mg/dL (0.0-0.9)
[2017-05-06 06:55] LABS: Hematocrit 37.7 % (42.0-52.0); Hemoglobin 13.2 gm/dL (13.5-18.0); Mean Cell Volume 90.2 fl (78-100); Mean Corpuscular Hemoglobin 31.6 pg (27-31); Mean Platelet Volume 12.2 fl (6.0-9.5); Red Blood Count 4.18 M/mm3 (4.7-6.0); Red Cell Distribution Width 13.6 % (11.5-14.0); White Blood Count 13.5 K/mm3 (4.0-10.5)
[2017-05-06 07:00] LABS: Platelet Count 144 K/mm3 (150-450)
[2017-05-06 07:01] LABS: Total Cells Counted 100
[2017-05-06 07:08] LABS: Band 8 % (0-2.0); Lymphocyte 1 % (20-51); Monocyte 2 % (0-9); Neutrophil 89 % (42-75); Platelet Estimate Decreased (NORMAL); RBC Morphology Normal (NORMAL); Toxic Granulation Trace
--- NOTE | 2017-05-06 08:11 | PN ---
Subjective - Date and Time Seen Date: 05/06/17 Time: 08:08 Subjective Narrative: Denies any concerns. He states that ever since he had hives postoperatively he' s noted increased calf pain. He reports is not necessarily knee pain and he has no pain with knee range of motion nor any tenderness but pain when ambulating. He is sitting up in a chair. He reports no fevers or chills. Objective - Vitals Vitals: Last Vital Signs Temp 36.7 C 05/06/17 04:24 Pulse 113 H 05/06/17 04:24 Resp 20 05/06/17 04:24 BP 121/79 05/06/17 04:24 Pulse Ox 95 05/06/17 04:24 - Abnormal Lab Findings Abnormal Lab Findings: Abnormal Lab Results 05/06/17 05/06/17 Range/Units 05:40 05:40 WBC 13.5 H D (4.0-10.5) K/mm3 RBC 4.18 L (4.7-6.0) M/mm3 Hgb 13.2 L (13.5-18.0) gm/dL Hct 37.7 L (42.0-52.0) % MCH 31.6 H (27-31) pg Plt Count 144 L (150-450) K/mm3 MPV 12.2 H (6.0-9.5) fl Neutrophils % (Manual) 89 H (42-75) % Band Neuts % (Manual) 8 H (0-2.0) % Lymphocytes % (Manual) 1 L (20-51) % Neutrophils # (Manual) 12.0 H (1.3-6.0) K/mm3 Lymphocytes # (Manual) 0.1 L (1.5-3.5) k/mm3 Platelet Estimate Decreased L (NORMAL) Carbon Dioxide 22.2 L (24-32.6) mmol/L Anion Gap 15.3 H (6.8-13.8) mmol/L BUN 26 H (6-23) mg/dL Creatinine 1.44 H (0.4-1.4) mg/dL Est GFR (Non-Af Amer) 53 L (60-130) mL/min Random Glucose 130 H (70-110) mg/dL Calcium 7.4 L (7.9-10.9) mg/dL C-Reactive Prot, Quant 29.4 H (0.0-0.9) mg/dL Albumin 1.8 L (3.4-5.0) gm/dl - Exam Exam Narrative: Right lower extremity: No appreciable knee effusion, no tenderness to palpation the knee, no pain with knee range of motion, no warmth or erythema about the knee, mild swelling to the calf with mild tenderness along the medial aspect of the calf consistent with his prior concerns at which time an ultrasound revealed no DVT. The foot continues to improve in swelling without any signs of ongoing abscess. There is no drainage from the wounds and the sutures are in place. There is mild swelling about the ankle. The dressings were reapplied with an Elton wrap. Although his inflammatory markers are continues to be elevated his foot appears to be improving. I would recommend continued antibiotics and continuing observation of his foot. I do not have any significant concerns for septic right knee based on exam. Assessment/Plan - Problems/Diagnosis (1) Osteomyelitis of right foot Problem: Acute Qualifiers: Osteomyelitis type: other acute Qualified Code(s): M86.171 - Other acute osteomyelitis, right ankle and foot
[2017-05-06] MEDS: ONDANSETRON HCL/PF 2 MG/ML VIAL IV PRN ×2 (08:47→17:36)
[2017-05-06] MEDS: VANCOMYCIN HCL 1.5 GM in DEXTROSE 5 % IN WATER 500 ML IV SCH ×4 (08:59→20:36)
[2017-05-06] MEDS: CHOLECALCIFEROL 5,000 UNIT TABLET PO SCH (09:02)
[2017-05-06] MEDS: SACCHAROMYCES BOULARDII 250 MG CAPSULE PO SCH ×2 (09:02→20:36)
[2017-05-06] MEDS: LORATADINE 10 MG TABLET PO SCH (09:02)
[2017-05-06] MEDS: LISINOPRIL 10 MG TABLET PO SCH (09:03)
--- NOTE | 2017-05-06 13:48 | PN ---
Subjective - Date and Time Seen Date: 05/06/17 Time: 13:17 Subjective Narrative: C/O diarrhea which stared since last evening however overall is feeling much better. Had 3 BMs so far fairly watery w/o blood. Maximum temp last night at 11:40 PM 38.5C. No joint pains today. Objective - Review of Systems Generalized/Overall Review: Reports: Fatigue. Denies: Chills, Fever Respiratory: Denies: Cough, Shortness of Breath Abdominal: Reports: Diarrhea. Denies: Nausea, Vomiting Musculoskeletal Complaints: Denies: Joint Pain - Vitals Vitals: Vital Signs Temp 37.1 C 05/06/17 12:12 Pulse 95 05/06/17 12:12 Resp 18 05/06/17 12:12 BP 123/75 05/06/17 12:12 Pulse Ox 95 05/06/17 12:12 - Abnormal Lab Findings Abnormal Lab Findings: Abnormal Lab Results 05/06/17 05/06/17 Range/Units 05:40 05:40 WBC 13.5 H D (4.0-10.5) K/mm3 RBC 4.18 L (4.7-6.0) M/mm3 Hgb 13.2 L (13.5-18.0) gm/dL Hct 37.7 L (42.0-52.0) % MCH 31.6 H (27-31) pg Plt Count 144 L (150-450) K/mm3 MPV 12.2 H (6.0-9.5) fl Neutrophils % (Manual) 89 H (42-75) % Band Neuts % (Manual) 8 H (0-2.0) % Lymphocytes % (Manual) 1 L (20-51) % Neutrophils # (Manual) 12.0 H (1.3-6.0) K/mm3 Lymphocytes # (Manual) 0.1 L (1.5-3.5) k/mm3 Platelet Estimate Decreased L (NORMAL) Carbon Dioxide 22.2 L (24-32.6) mmol/L Anion Gap 15.3 H (6.8-13.8) mmol/L BUN 26 H (6-23) mg/dL Creatinine 1.44 H (0.4-1.4) mg/dL Est GFR (Non-Af Amer) 53 L (60-130) mL/min Random Glucose 130 H (70-110) mg/dL Calcium 7.4 L (7.9-10.9) mg/dL C-Reactive Prot, Quant 29.4 H (0.0-0.9) mg/dL Albumin 1.8 L (3.4-5.0) gm/dl - Exam Constitutional: Present: Middle aged, Obese, Looks Older than stated age - less flushed, alert and oriented x3, in NAD. ENT Exam: Present: hearing grossly normal, moist mucous membranes Respiratory: Present: normal breath sounds - in. Absent: no accessory muscle use Cardiovascular/Chest: Present: regular rate, rhythm, tachycardia. Absent: systolic murmur Abdomen: Present: Normal bowel sounds, soft, nontender, nondistended, obese Extremity: Present: other - s/p metatarsal resection 2nd head RT foot and I and D Appearance: Present: appropriate appearance, appropriate insight, neat Assessment/Plan Plan Narrative: 1. Osteomyelitis of RT foot: S/P irrigation and debridement of right foot and excision of second metatarsal head: POD # 7 Bone biopsy negative. Patient spiked a temperature 38.5C, WBC 25.9K on 05/05 decreased to 13.5K; however CRP increased from 17.2[05/05] to 29.4[8/]. Blood cultures 2 done on 05/05. Levaquin 750 mg IV day #2. Vancomycin 1.5 g IV Q12H day #9. 2. Diarrhea: Send for C. difficile toxin.- negative. 3 Hypertension: Continue lisinopril 10 mg at bedtime. 3. Obesity: BMI 33.0 4. DVT prophylaxis: Enoxaparin 40 mg subcutaneous daily Full code.
[2017-05-06] MEDS: LEVOFLOXACIN/D5W 750 MG/150 ML BAG IV SCH (14:27)
[2017-05-06] MEDS: ACETAMINOPHEN 325 MG TABLET PO PRN (17:52)
--- NOTE | 2017-05-06 20:07 | PN ---
Progess Note - Interim Narrative: 05/06/17 22:35 updated note on patient's care. spoke with Dr. Huntley who requested that patient be transferred to [facility]. Audi had spoken with Dr. Meyers ( Infectious disease) on 05/05/17 who indicated that if patient is not improving in 24-48 hours to consider transfer. Gavi's vitals: 37.1-750-64-142/79-94% on RA. Called [facility], cashier receptionist indicated that [facility] is on high census and therefore cannot accept non-critical transfers at this time but will start the transfer process in the morning. Information faxed to [facility] by audio visual secretary. Radiology images pushed. Summary of patient's care: 04/27/17 admit with right foot ulcer - started on vanco and zosyn 05/01/17 surgery by ortho: I&D right foot with excision of 2nd metatarsal head - culture sent. 05/03/17 culture from 05/01/17 grew enterococcus faecalis - d/c vanco and zosyn - start unasyn 05/04/17 pt develops rash - d/c unasyn. restart vanco. iv steroid and benadryl for rash 05/05/17 temp 38.5 hr 135 with chills. bone bx negative. wbc up to 25.9. crp 17.2. started on levaquin 750 mg iv daily with vanco. 05/06/17 c/o diarrhea - c diff neg. wbc down to 13.5, crp up to 29.4. currently on vanco 1.5 gm iv q 12 hours - day #9 and levaquin 750 mg iv daily - day #2. Called Dr. Meyers with infectious disease on 05/06/17 at 1935 and updated him on patient's case. he recommended rechecking blood cultures (which were done on ), check UA, check chest xray and add iv flagyl to cover for possible anaerobes. Dr. huntley notified of above. RADHA Teague.
[2017-05-06] MEDS: metroNIDAZOLE/SODIUM CHLORIDE 500 MG/100 ML BAG IV SCH (20:59)
[2017-05-06 22:10] LABS: Urine Bilirubin Negative (NEGATIVE); Urine Blood Negative /ul (NEGATIVE); Urine Ketone Negative (NEGATIVE); Urine Nitrite Negative (NEGATIVE); Urine Protein 15 mg/dL (NEGATIVE); Urine Specific Gravity 1.025 SP.GR. (1.005-1.030); Urine Urobilinogen Normal (NORMAL); Urine pH 5.5 pH (5.0-7.0)
[2017-05-06 22:18] LABS: Urine Appearance Slightly Cloudy; Urine Color Yellow
[2017-05-06 22:19] LABS: Urine Amorphous Sediment Few - 1+ (NONE-FEW); Urine Bacteria 2+; Urine Hyaline Cast 0-5 /LPF; Urine Mucus Few - 1+; Urine RBC None Seen /hpf (0-5); Urine WBC None Seen /hpf (0-5)
[2017-05-07] MEDS: metroNIDAZOLE/SODIUM CHLORIDE 500 MG/100 ML BAG IV SCH ×3 (02:05→14:27)
[2017-05-07] MEDS: NORMAL SALINE 1,000 ML IV PRN ×2 (02:05→09:28)
[2017-05-07 06:01] LABS: Hematocrit 34.8 % (42.0-52.0); Hemoglobin 11.8 gm/dL (13.5-18.0); Mean Cell Volume 90.9 fl (78-100); Mean Corpuscular Hemoglobin 30.8 pg (27-31); Mean Corpuscular Hgb Conc 33.9 g/dl (32-36); Mean Platelet Volume 10.7 fl (6.0-9.5); Platelet Count 165 K/mm3 (150-450); Red Blood Count 3.83 M/mm3 (4.7-6.0); Red Cell Distribution Width 13.6 % (11.5-14.0)
[2017-05-07 06:12] LABS: Total Cells Counted 100
[2017-05-07 06:13] LABS: Prothrombin Time (Patient) 11.4 Seconds (9.4-11.4)
[2017-05-07 06:20] LABS: Albumin * 1.5 gm/dl (3.4-5.0); BUN/Creatinine Ratio 20.6 (9.0-21.6); Bilirubin, Total 0.4 mg/dL (0.0-1.1); Calcium * 7.3 mg/dL (7.9-10.9); Carbon Dioxide 22.4 mmol/L (24-32.6); Potassium 3.4 mmol/L (3.4-4.6); Total Protein 5.5 gm/dL (6.2-8.2)
[2017-05-07 06:25] LABS: INR 1.1 INR (0.90-1.10)
[2017-05-07 06:39] LABS: CRP 23.4 mg/dL (0.0-0.9)
[2017-05-07 06:43] LABS: Band 7 % (0-2.0); Immature Granulocyte 3 (0-1); Lymphocyte 1 % (20-51); Monocyte 1 % (0-9); Neutrophil 88 % (42-75); Neutrophil # 10.6 K/mm3 (1.3-6.0)
[2017-05-07 06:44] LABS: Platelet Estimate Normal (NORMAL); RBC Morphology Normal (NORMAL); Toxic Granulation Trace
[2017-05-07] MEDS: FAMOTIDINE 20 MG in DEXTROSE 5 % IN WATER 100 ML IV SCH ×4 (07:59→16:30)
[2017-05-07] MEDS: SACCHAROMYCES BOULARDII 250 MG CAPSULE PO SCH (07:59)
[2017-05-07] MEDS: LORATADINE 10 MG TABLET PO SCH (07:59)
[2017-05-07] MEDS: LISINOPRIL 10 MG TABLET PO SCH (07:59)
[2017-05-07] MEDS: CHOLECALCIFEROL 5,000 UNIT TABLET PO SCH (07:59)
[2017-05-07] MEDS: VANCOMYCIN HCL 1.5 GM in DEXTROSE 5 % IN WATER 500 ML IV SCH ×2 (09:20)
[2017-05-07] MEDS: POTASSIUM CHLORIDE 20 MEQ TABLET.SA PO SCH ×2 (09:20→16:28)
[2017-05-07] MEDS: LEVOFLOXACIN/D5W 750 MG/150 ML BAG IV SCH (14:27)
[2017-05-07 14:56] VITALS: BP 143/92
--- NOTE | 2017-05-07 17:52 | PN ---
Subjective - Date and Time Seen Date: 05/07/17 Subjective Narrative: Feels better overall, diarrhea has diminished. Objective - Review of Systems Generalized/Overall Review: Reports: Weakness Respiratory: Denies: Cough, Shortness of Breath Cardiac: Reports: Edema. Denies: Chest Pain - Vitals Vitals: Vital Signs Temp 36.7 C 05/07/17 14:55 Pulse 103 H 05/07/17 14:55 Resp 18 05/07/17 14:55 BP 143/92 05/07/17 14:55 Pulse Ox 95 05/07/17 14:55 - Abnormal Lab Findings Abnormal Lab Findings: Laboratory Tests 05/07/17 05:56 WBC 12.0 H Hgb 11.8 L Hct 34.8 L Plt Count 165 Band Neuts % (Manual) 7 H 05/07/17 05:56 Plasma Sodium 139 Potassium 3.4 Chloride 106 Carbon Dioxide 22.4 L BUN 26 H Creatinine 1.26 Est GFR (Non-Af Amer) 62 Random Glucose 143 H Calcium Adj for Albumin 9.0 Total Bilirubin 0.4 AST 16 ALT 42 Alkaline Phosphatase 92 C-Reactive Prot, Quant 23.4 H CXR 05/06/2017: no infiltrate UA negative - Exam Constitutional: Present: Middle aged, Obese, Looks Older than stated age - Not toxic looking and in NAD. ENT Exam: Present: hearing grossly normal, moist mucous membranes Respiratory: Present: lungs clear, normal breath sounds Cardiovascular/Chest: Present: regular rate, rhythm, tachycardia. Absent: systolic murmur Abdomen: Present: Normal bowel sounds, nontender, obese Extremity: Present: normal range of motion, normal inspection Skin Exam: Present: normal color, warm/dry Neurologic: Present: alert, normal mood/affect, oriented x 3 Assessment/Plan Plan Narrative: 1. Osteomyelitis of RT foot: S/P irrigation and debridement of right foot and excision of second metatarsal head: POD # 8 Bone biopsy negative. Blood cultures 2 done on 05/05. Levaquin 750 mg IV day # 3. Vancomycin 1.5 g IV Q12H day #10. Metronidazole 500 mg IV Q8H day #2. Discuss[address] Ware[ ID] at of on 05/05 by and 05/06 by Amie Miller Possible transfer to if patient's condition does not improve for consult with ID and further workup. No beds at . 2. Diarrhea: Send for C. difficile toxin.- negative. 3 Hypertension: Continue lisinopril 10 mg at bedtime. 3. Obesity: BMI 33.0 4. DVT prophylaxis: Enoxaparin 40 mg subcutaneous daily Full code.
--- NOTE | 2017-05-07 20:38 | DS ---
Transfer Discharge Summary - Diagnosis(s)/Problems (1) Osteomyelitis of right foot Problem: Acute (2) Cellulitis of right foot Problem: Acute (3) HTN (hypertension) Problem: Chronic - Course Description of Stay: Date of Admission: 04/27/17 Date of Discharge: 05/07/17 Consultation done: Dr. Lorenzo with Orthopaedics Radiology Procedures: 1. Right Foot Xray (04/27/17) IMPRESSION: 1. DIFFUSE SOFT TISSUE SWELLING OF THE SECOND TOE WITH PLANTAR SKIN ULCERATION SEEN AT THE BASE OF THE SECOND TOE. 2. ASSOCIATED EROSIVE CHANGES OF THE SECOND METATARSAL HEAD CONSISTENT WITH OSTEOMYELITIS. 3. DJD OF THE FIRST MTP JOINT. 2. Lower extremity MRI (04/29/17) IMPRESSION: 1. Most likely septic arthritis/inflammatory arthropathy of the second metatarsophalangeal joint, with dislocation, with second intermetatarsal space abscess with a sinus tract which appears to drain at the plantar aspect of the foot. 2. Marrow placement/edema of the base of the second proximal phalanx and the second metatarsal head/diaphysis concerning for osteomyelitis. 3. Nonspecific inflammation of the first metatarsophalangeal joint superimposed on degenerative changes. Correlate clinically for additional site of joint infection. 3. Venous doppler (05/02/17) IMPRESSION: NO DVT. SUPERFICIAL THROMBOPHLEBITIS. 4. Chest xray (05/06/17) IMPRESSION: NO ACUTE CARDIOPULMONARY ABNORMALITY IDENTIFIED. Surgical Procedures 1. Irrigation and debridement of right foot with excision of 2nd metatarsal head (05/01/17) by Dr. Lorenzo. Description of Stay: Johnny is a 61 year old male patient of Dr. Purvis with a PMH of HTN who presented to the ER today with c/o fever, chills and purulent drainage coming from right distal foot. States that feet became wet with pus coming out of the right distal foot, palm side, 1 week ago. patient attempted to treat at home with peroxide soaks. Patient denies any feet pain. States no medical insurance so did not seek medical care initially. Right distal foot continues to worsen, to the point the patient developed fevers and chills for the past 2 days. ER eval revealed wbc elevated at 13.3 with 86% neutrophils. esr 76, crp 14.3, lactic acid/procalcitonin wnl, cmp remarkable for ast 51, alt 96 and serum glucose 150. right foot xray shows diffuse soft tissue swelling of 2nd toe with plantar skin ulceration seen at base of 2nd toe and associated erosive changes of 2nd metatarsal head c/w osteomyelitis. Patient denies history of diabetes or diabetic neuropathy. Patient was admitted for right toe osteomyelitis / right foot cellulitis and orthopaedic consult. 04/27/17 admit with right foot ulcer - started on vanco and zosyn. these very continued every day, as ordered, through 05/01/17. 05/01/17 surgery by ortho: I&D right foot with excision of 2nd metatarsal head - culture sent. continue vanco and zosyn to 05/03/17 05/03/17 culture from 05/01/17 grew enterococcus faecalis - d/c vanco and zosyn - start unasyn 05/04/17 pt develops rash - d/c unasyn. restart vanco. iv steroid and benadryl for rash 05/05/17 temp 38.5 hr 135 with chills. bone bx negative. wbc up to 25.9. crp 17.2. started on levaquin 750 mg iv daily with vanco. 05/06/17 c/o diarrhea - c diff neg. wbc down to 13.5, crp up to 29.4. currently on vanco 1.5 gm iv q 12 hours - day #9 and levaquin 750 mg iv daily - day #2. Called Dr. Meyers with infectious disease on 05/06/17 at 1935 and updated him on patient's case. he recommended rechecking blood cultures (which were done on ), check UA, check chest xray and add iv flagyl to cover for possible anaerobes. 05/07/17 patient continues on vanco, levaquin and flagyl iv. transferred to [facility] for continued care by infectious disease. Procedures Performed: see notes below - Results and Findings Results and Findings: Laboratory Results - last 24 hr 05/06/17 05/06/17 05/07/17 22:00 22:30 05:56 WBC 12.0 H RBC 3.83 L Hgb 11.8 L Hct 34.8 L MCV 90.9 MCH 30.8 MCHC 33.9 RDW 13.6 Plt Count 165 MPV 10.7 H Neutrophils % (Manual) 88 H Band Neuts % (Manual) 7 H Lymphocytes % (Manual) 1 L Monocytes % (Manual) 1 Immature Granulocytes 3 H Neutrophils # (Manual) 10.6 H Lymphocytes # (Manual) 0.1 L Monocytes # (Manual) 0.1 Toxic Granulation Trace Platelet Estimate Normal RBC Morphology Normal PT INR (Anticoag Therapy) Sodium Plasma Sodium Potassium Chloride Carbon Dioxide Anion Gap BUN Creatinine Est GFR (Non-Af Amer) BUN/Creatinine Ratio Random Glucose Calcium Calcium Adj for Albumin Total Bilirubin AST ALT Alkaline Phosphatase C-Reactive Prot, Quant Total Protein Albumin Urine Color Yellow Urine Appearance Slightly cloudy Urine pH 5.5 Ur Specific [place] 1.025 Urine Protein 15 H Urine Glucose (UA) Negative Urine Ketones Negative Urine Blood Negative Urine Nitrate Negative Urine Bilirubin Negative Prot Sulfosalicylic Acd 1+ Urine Urobilinogen Normal Ur Leukocyte Esterase Negative Urine RBC None seen Urine WBC None seen Ur Epithelial Cells None seen Amorphous Sediment Few - 1+ Urine Bacteria 2+ H Hyaline Casts 0-5 H Urine Mucus Few - 1+ H Urine Culture Comments No culture indicated Stl C.difficile Tox A&B Replicate 7 days 05/07/17 05/07/17 05:56 05:56 WBC RBC Hgb Hct MCV MCH MCHC RDW Plt Count MPV Neutrophils % (Manual) Band Neuts % (Manual) Lymphocytes % (Manual) Monocytes % (Manual) Immature Granulocytes Neutrophils # (Manual) Lymphocytes # (Manual) Monocytes # (Manual) Toxic Granulation Platelet Estimate RBC Morphology PT 11.4 INR (Anticoag Therapy) 1.10 Sodium 138 Plasma Sodium 139 Potassium 3.4 Chloride 106 Carbon Dioxide 22.4 L Anion Gap 13.0 BUN 26 H Creatinine 1.26 Est GFR (Non-Af Amer) 62 BUN/Creatinine Ratio 20.6 Random Glucose 143 H Calcium 7.3 L Calcium Adj for Albumin 9.0 Total Bilirubin 0.4 AST 16 ALT 42 Alkaline Phosphatase 92 C-Reactive Prot, Quant 23.4 H Total Protein 5.5 L Albumin 1.5 L Urine Color Urine Appearance Urine pH Ur Specific [place] Urine Protein Urine Glucose (UA) Urine Ketones Urine Blood Urine Nitrate Urine Bilirubin Prot Sulfosalicylic Acd Urine Urobilinogen Ur Leukocyte Esterase Urine RBC Urine WBC Ur Epithelial Cells Amorphous Sediment Urine Bacteria Hyaline Casts Urine Mucus Urine Culture Comments Stl C.difficile Tox A&B - Medications Medications: Active Medications Discontinued Medications Acetaminophen (Tylenol) 650 mg PO QID PRN PRN Reason: Mild Pain Stop: 05/27/17 18:45 Last Admin: 05/06/17 17:52 Dose: 650 mg Cholecalciferol (Vitamin D) 5,000 unit PO DAILY [facility]ITY Stop: 05/30/17 18:01 Last Admin: 05/07/17 07:59 Dose: 5,000 unit Diphenhydramine HCl (Benadryl) 25 mg IV ONCE STA Stop: 05/04/17 07:57 Last Admin: 05/04/17 08:06 Dose: 25 mg Diphenhydramine HCl (Benadryl) 25 mg IV ONCE ONE Stop: 05/05/17 13:33 Last Admin: 05/05/17 14:28 Dose: 25 mg Enalapril Maleate (Vasotec) 5 mg PO DAILY [facility] Stop: 05/28/17 09:01 Last Admin: 04/30/17 09:19 Dose: 5 mg Enoxaparin Sodium (Lovenox) 40 mg SC Q24H CHARITY Stop: 05/27/17 18:46 Last Admin: 04/28/17 18:08 Dose: 40 mg Sodium Chloride (Sodium Chloride 0.9%) 3,270 mls @ 999 mls/hr IV .Q3H17M PRN PRN Reason: HYDRATION Stop: 05/27/17 15:26 Last Infusion: 04/27/17 17:52 Dose: Infused Piperacillin Sod/Tazobactam (Sod 3.375 gm/ Dextrose/Water) 100 mls @ 200 mls/ hr IV ONCE ONE PRN Reason: Protocol Stop: 04/27/17 17:26 Last Infusion: 04/27/17 18:36 Dose: Infused Vancomycin HCl 1 gm/ Dextrose/ (Water) 250 mls @ 140 mls/hr IV ONCE ONE PRN Reason: Protocol Stop: 04/27/17 20:22 Last Infusion: 04/27/17 21:26 Dose: Infused Vancomycin HCl 1 gm/ Dextrose/ (Water) 250 mls @ 140 mls/hr IV Q12H CHARITY PRN Reason: Protocol Stop: 05/27/17 06:01 Last Admin: 04/28/17 10:01 Dose: Not Given Sodium Chloride (Sodium Chloride 0.9%) 3,000 mls @ 999 mls/hr IV .Q3H1M PRN PRN Reason: HYDRATION Stop: 05/27/17 15:26 Last Infusion: 04/28/17 00:32 Dose: Infused Piperacillin Sod/Tazobactam (Sod 3.375 gm/ Dextrose/Water) 100 mls @ 25 mls/hr IV Q8H [facility]ITY PRN Reason: Protocol Stop: 05/28/17 02:01 Last Infusion: 05/03/17 07:14 Dose: Infused Sodium Chloride (Sodium Chloride 0.9%) 1,000 mls @ 75 mls/hr IV .[id number] PRN PRN Reason: HYDRATION Stop: 05/27/17 23:56 Last Infusion: 05/01/17 06:44 Dose: Infused Vancomycin HCl 1 gm/ Dextrose/ (Water) 250 mls @ 140 mls/hr IV Q12H CHARITY PRN Reason: Protocol Stop: 05/28/17 08:16 Last Infusion: 04/28/17 10:11 Dose: Infused Vancomycin HCl 1.5 gm/ (Dextrose/Water) 500 mls @ 140 mls/hr IV Q12H CHARITY PRN Reason: Protocol Stop: 05/28/17 19:01 Last Infusion: 05/03/17 09:38 Dose: Infused Ampicillin Sodium/Sulbactam (Sodium 1.5 gm/ Sodium Chloride) 100 mls @ 200 mls/ hr IV Q6H CHARITY PRN Reason: Protocol Stop: 06/02/17 09:01 Last Admin: 05/04/17 08:08 Dose: Not Given Vancomycin HCl 1.5 gm/ (Dextrose/Water) 500 mls @ 140 mls/hr IV Q12H [facility] Stop: 06/03/17 08:31 Last Admin: 05/07/17 09:20 Dose: 140 mls/hr Levofloxacin/Dextrose (Levaquin) 750 mg in 150 mls @ 100 mls/hr IV Q24H [facility] Stop: 06/04/17 14:01 Last Admin: 05/07/17 14:27 Dose: 100 mls/hr Sodium Chloride (Sodium Chloride 0.9%) 1,000 mls @ 999 mls/hr IV .Q1H1M ONE Stop: 05/05/17 14:18 Last Infusion: 05/05/17 14:40 Dose: Infused Famotidine 20 mg/ Dextrose/ (Water) 102 mls @ 400 mls/hr IV BIDAC CHARITY Stop: 06/04/17 17:01 Last Admin: 05/07/17 16:30 Dose: 400 mls/hr Sodium Chloride (Sodium Chloride 0.9%) 1,000 mls @ 500 mls/hr IV .Q2H ONE Stop: 05/05/17 17:41 Last Infusion: 05/05/17 17:50 Dose: Infused Sodium Chloride (Sodium Chloride 0.9%) 1,000 mls @ 150 mls/hr IV .Q6H40M PRN PRN Reason: HYDRATION Stop: 06/04/17 19:41 Last Admin: 05/07/17 09:28 Dose: 150 mls/hr Metronidazole (Flagyl) 500 mg in 100 mls @ 100 mls/hr IV Q6H [facility]ITY PRN Reason: Protocol Stop: 06/05/17 21:01 Last Admin: 05/07/17 14:27 Dose: 100 mls/hr Ibuprofen (Motrin) 800 mg PO ONCE ONE Stop: 04/27/17 15:06 Last Admin: 04/27/17 15:16 Dose: 800 mg Ketorolac Tromethamine (Toradol) 15 mg IV Q6H PRN PRN Reason: Moderate Pain Stop: 05/09/17 00:21 Last Admin: 05/04/17 06:48 Dose: 15 mg Lisinopril (Zestril) 10 mg PO DAILY [facility] Stop: 05/30/17 21:01 Last Admin: 05/07/17 07:59 Dose: 10 mg Loratadine (Claritin) 10 mg PO DAILY [facility] Stop: 06/04/17 09:01 Last Admin: 05/07/17 07:59 Dose: 10 mg Lorazepam (Ativan) 1 mg IV ONCE STA Stop: 04/28/17 13:25 Last Admin: 04/28/17 13:31 Dose: 1 mg Methylprednisolone Sodium Succinate (Solu-Medrol) 125 mg IV ONCE STA Stop: 05/04/17 07:56 Last Admin: 05/04/17 08:06 Dose: 125 mg Ondansetron HCl (Zofran) 4 mg IV Q6H PRN PRN Reason: Nausea And Vomiting Stop: 06/05/17 08:43 Last Admin: 05/06/17 17:36 Dose: 4 mg Pantoprazole Sodium (Protonix) 40 mg PO DAILY@0700 [facility] Stop: 05/28/17 07:01 Last Admin: 05/05/17 06:48 Dose: 40 mg Potassium Chloride (K-Dur) 40 meq PO BIDWM [facility] Stop: 05/07/17 17:01 Last Admin: 05/07/17 16:28 Dose: 40 meq Saccharomyces Boulardii (Florastor) 250 mg PO BID [facility] Stop: 05/28/17 09:01 Last Admin: 05/07/17 07:59 Dose: 250 mg Vancomycin HCl (Vancomycin Level) 1 XX ONCE ONE Stop: 05/02/17 06:31 Last Admin: 05/02/17 07:00 Dose: 1 Vancomycin HCl (Vancomycin Level) 1 XX ONCE ONE Stop: 05/05/17 20:01 Last Admin: 05/05/17 21:30 Dose: 1 - Disposition Disposition: [facility] Condition: Good Discharge Date: 05/07/17 Discharge Time: 19:17
== END 2017-05-07 19:15 | disposition short-term general hospital (02) | DRG 501 ==
LOC: ER 14:50 → MS 18:37
PROVIDERS: ADMIT Internal Medicine; ATTEND Internal Medicine
PROC: 0JDQ0ZZ Extraction of Right Foot Subcutaneous Tissue and Fascia, Open Approach (ICD-10-PCS; 2017-04-30)
PROC: 0SBM0ZZ Excision of Right Metatarsal-Phalangeal Joint, Open Approach (ICD-10-PCS; principal; 2017-04-30 16:45)
DX: M86.171 Other acute osteomyelitis, right ankle and foot (principal); L03.115 Cellulitis of right lower limb; B95.2 Enterococcus as the cause of diseases classified elsewhere; I10 Essential (primary) hypertension; R19.7 Diarrhea, unspecified; L27.0 Generalized skin eruption due to drugs and medicaments taken internally; T36.0X5A Adverse effect of penicillins, initial encounter; Y92.230 Patient room in hospital as the place of occurrence of the external cause
CPT/HCPCS: 11000; 28810; 36415; 71010; 73630; 73720; 80048; 80053; 80202; 81001; 82607; 83036; 83605; 84145; 84484; 85007; 85025; 85027; 85610; 85652; 86140; 87040; 87070; 87077; 87186; 87493; 93005; 93971; 96365; 96366; 96372; 97110; 97116; 97162; 97165; 99285; J2405

== ENCOUNTER 2017-05-12 13:32 | Observation (INO) | payer SELFPAY ==
[2017-05-12] MEDS ORDERED: VANCOMYCIN HCL IN DEXTROSE 5% IV SCH (17:30)
[2017-05-12] MEDS ORDERED: [UNRECOGNIZED DRUG - OTHER] IV SCH (17:30)
[2017-05-12] MEDS: CIPROFLOXACIN HCL 500 MG TABLET PO SCH (18:29)
[2017-05-12] MEDS: metroNIDAZOLE 500 MG TABLET PO SCH (18:29)
[2017-05-12] MEDS: hydrALAZINE HCL 25 MG TABLET PO SCH (18:29)
[2017-05-12] MEDS: VANCOMYCIN HCL 1.5 GM in DEXTROSE 5 % IN WATER 500 ML IV SCH ×2 (18:29)
[2017-05-12] MEDS: [UNRECOGNIZED DRUG - OTHER] TP SCH (20:31)
[2017-05-12] MEDS: LISINOPRIL 10 MG TABLET PO SCH (20:31)
--- NOTE | 2017-05-12 20:52 | HP ---
Chief Complaint - Chief Complaint Date of Service: 05/12/17 Time of Service: 20:15 Chief Complaint: right foot osteomyelitis History of Present Illness: Johnny is a 61 year old male patient of Dr. Purvis with a PMH of HTN who was directly admitted with right foot osteomyelitis. He previously was admitted on 04/27/17 after 1 week of swelling, and pus exudate from his right foot. On admission, he was found to have elevated wbc and xray suggestive of osteomyelitis in the second metatarsal head. Patient was then started on iv vanco and zosyn. MRI of the right foot was done and confirmed septic arthritis / inflammatory arthropathy of the 2nd metatarsophalangeal joint with dislocation with second metatarsale space abscess with the sinus tract that appeared to drain to the plantar aspect of the foot. Patient underwent an I&D of the right foot on 04/30/17 with excision of the 2nd metatarsal head. wound cultures from surgery grew enterococcus faecalis after which vanco and zosyn were discontinued and he was started on unasyn. He then developed an urticarial rash to the Unasyn and it was then discontinued. He was given IV benadryl and solumedrol and restarted on IV vanco. He spked a temp of 38.5 on with wbc 25.0 and levaquin was added on top of vancomycin. he then developed mild diarrhea, however c diff was checked and came back negative. He was then started on IV flagyl on 05/06/17. Patient was then transferred to [facility] for infectious disease consult on 05/07/17. PAULIE was done and was negative for an vegetations. Infectious disease believes that his fevers and tachycardia are most likely related to his serum sickness secondary to unasyn reaction. Patient was transitioned to oral flagyl and oral ciprofloxacin with iv vanco. He will need these 3 medications for 6 weeks. Infectious disease also recommend no PCN with very cautious use of cephalosporins. Patient transferred from [facility] to [facility] for PICC line and further management of his osteomyelitis. - Patient's Past Medical History Patient History - Medical: No pertinent hx, Other - osetomyelitis in right foot. Patient History - Cardiac/Respiratory: Hypertension Patient History - Cancer: No Hx of Cancer Patient History - Surgical Procedures: Appendectomy Patient History - Other: None - Family History Mother Family History - Medical: , Rheumatoid Arthritis Family History - Cardiac/Respiratory: CVA/Stroke Father Family History - Medical: - Social History Living Situations: alone Abuse History: No History of abuse Psych History: No pertinent hx Smoking Status: Never smoker Have you smoked in the past 12 months: No Do you dip or chew tobacco: No Patient requests Smoking Cessation Consult: No Initiate information on Smoking Cessation: No Alcohol Use: rarely Drug Use: none - Immunizations Immunizations Up to Date: Yes Review Of Systems (GEN) - Review of Systems Generalized/Overall Review: Present: No Symptoms Reported EENTM: Present: No Symptoms Reported Respiratory: Present: No Symptoms Reported Cardiac: Present: No Symptoms Reported Abdominal: Present: No Symptoms Reported Genitourinary: Present: No Symptoms Reported Musculoskeletal: Present: No Symptoms Reported Neurological: Present: No Symptoms Reported Skin: Present: No Symptoms Reported Endocrine: Present: No Symptoms Reported Misc: All systems neg except as marked Immunizations: IMMUNIZATION HX Immunizations Up to Date Yes Allergies/Adverse Reactions: Allergies Allergy/AdvReac Type Severity Reaction Status Date / Time ampicillin [From Unasyn] Allergy Severe Hives Verified 05/04/17 08:01 Cephalosporins Allergy Severe Other Verified 05/12/17 16:10 Penicillins Allergy Severe Other Verified 05/12/17 16:10 sulbactam [From Unasyn] Allergy Severe Hives Verified 05/04/17 08:01 Home Medications: HOME MEDICATIONS Enalapril Maleate [Vasotec] 5 mg PO DAILY 04/27/17 [Last Taken 04/27/17 06:00] Ciprofloxacin HCl [Cipro] 500 mg PO BID 05/12/17 [Last Taken Unknown] Sodium Hypochlorite [Dakin's Solution 0.125%] 1 appl TP BID 05/12/17 [Last Taken Unknown] Vancomycin HCl in Dextrose 5 % [Vancomycin HCl 1G/200 ml Bag] 1 gm IV Q12H 05/12 [Last Taken Unknown] hydrALAZINE HCL [Hydralazine HCl] 50 mg PO Q8H 05/12/17 [Last Taken Unknown] metroNIDAZOLE [Flagyl] 500 mg PO Q8H 05/12/17 [Last Taken Unknown] Exam - Exam Vital Signs: Vital Signs - Last Taken Temp 36.5 C 05/12/17 18:20 Pulse 98 05/12/17 20:31 Resp 20 05/12/17 18:20 BP 155/77 05/12/17 20:31 Pulse Ox 96 05/12/17 18:20 Constitutional: Present: Alert, Oriented x3, Cooperative, No distress ENT Exam: Present: hearing grossly normal Eye Exam: bilateral eye: normal inspection Neck: Present: full range of motion, supple Breasts: Present: Exam deferred Respiratory: Present: lungs clear, normal breath sounds Cardiovascular/Chest: Present: normal peripheral pulses, regular rate, rhythm, no chest tenderness Peripheral Pulses: carotid (R): 2+, carotid (L): 2+, dorsalis-pedis (R): 2+, dorsalis-pedis (L): 2+, radial (R): 2+, radial (L): 2+ Abdomen: Present: soft, nontender, nondistended /Rectal: Present: Exam deferred Extremity: Present: non-tender Skin Exam: Present: normal color, warm/dry, no cyanosis Assessment/Plan - Procedures Results: Osteomyelitis of right foot - continue wound care as previously ordered - continue IV vanco as ordered with po cipro and flagyl - will need 6 total weeks of all - consult anesthesia to place PICC line. - consult case management for management of predatory animal exterminator iv abx. as pt is self care - start probiotics. HTN - vital signs q 4 hours Code status: full code VTE: early ambulation GI proph: protonix po. - Assessment/Plan (1) Osteomyelitis of right foot Problem: Acute Qualifiers: Osteomyelitis type: other acute Qualified Code(s): M86.171 - Other acute osteomyelitis, right ankle and foot (2) HTN (hypertension) Problem: Chronic Qualifiers: Hypertension type: essential hypertension Qualified Code(s): I10 - Essential (primary) hypertension
[2017-05-13] MEDS: hydrALAZINE HCL 25 MG TABLET PO SCH ×3 (01:51→17:11)
[2017-05-13] MEDS: metroNIDAZOLE 500 MG TABLET PO SCH ×3 (01:51→17:11)
[2017-05-13] MEDS: VANCOMYCIN HCL 1.5 GM in DEXTROSE 5 % IN WATER 500 ML IV SCH ×4 (06:24→17:18)
--- NOTE | 2017-05-13 08:37 | OR ---
Anesthesia Procedure Note - Anesthesia Procedure Note Narrative: Vital Signs - Last Taken Temp 37.1 C 05/13/17 08:00 Pulse 83 05/13/17 08:00 Resp 18 05/13/17 08:00 BP 142/87 05/13/17 08:00 Pulse Ox 95 05/13/17 01:50 O2 Oxygen Delivery Method Room Air 05/13/17 08:34 ANESTHESIA PROCEDURE NOTE Date of procedure: 05/13/2017. Time of procedure: 05 15. Performed by: Dany Calderon CRNA Drop Worker: None . Preprocedure diagnosis: Right foot osteomyelitis. Need for long-term antibiotic therapy.. Post procedure diagnosis: Same. Procedure: PICC line placement Indications: Long-term IV antibiotic therapy. Findings: Right ante volitional cubital double-lumen PICC line was inserted using sterile technique. The lumens flushed and aspirated easily. Chest x-ray ordered to confirm placement. EBL: Minimal. Fluids: N/A. Specimen: N/A. Post procedure condition: The patient tolerated the procedure well. No complications were noted. Thank you for this consultation Dany Calderon CRNA
[2017-05-13] MEDS ORDERED: CHOLECALCIFEROL 1,000 UNIT CAPSULE PO SCH (09:00)
[2017-05-13] MEDS: CIPROFLOXACIN HCL 500 MG TABLET PO SCH ×2 (10:41→20:21)
[2017-05-13] MEDS: SACCHAROMYCES BOULARDII 250 MG CAPSULE PO SCH ×2 (11:11→20:21)
[2017-05-13] MEDS: [UNRECOGNIZED DRUG - OTHER] TP SCH ×2 (11:11→20:23)
[2017-05-13] MEDS: LISINOPRIL 10 MG TABLET PO SCH (11:11)
--- NOTE | 2017-05-13 14:36 | DS ---
(1) Osteomyelitis of right foot Problem: Chronic (2) HTN (hypertension) Problem: Chronic Qualifiers: Hypertension type: essential hypertension Qualified Code(s): I10 - Essential (primary) hypertension (3) Superficial phlebitis and thrombophlebitis of right lower extremity Problem: Acute Description of Stay: DATE OF ADMISSION: 05/12/2017. DATE OF DISCHARGE: 05/13/2017. DIAGNOSTICS: NONE. DISCHARGE SUMMARY: Johnny Palomino is a 61-year WM with a H/O HTN, osteomyelitis of second toe RT foot who was initially admitted from 04/27/17 to 05/07/17 for osteomyelitis of second toe RT foot. The patient later developed fever/chills after being switched to Unasyn prior to discharge. He was transferred to [facility] as a diagnosis was uncertain[ possible infection/reaction to Unasyn]. Diagnosed with serum sickness reaction to Unasyn and was transferred back on 04/2017 for a PICC line for continued antibiotics. A PICC line was placed in the RT cubital for vancomycin IV every 12 hours and the patient was continued on PO antibiotics which included ciprofloxacin 500 mg PO BID #60 and metronidazole 500 mg PO TID #90 [both for a month]. He was advised to follow- up with both ID and immunology for further testing. Patient was discharged in a stable condition. Procedures Performed: see notes below - PICC placement in RT antecubital - Discharge Disposition: Home self care Disposition: Home self-care Condition: Undetermined Discharge Diet: Low salt, Low fat/chol, High Fiber Referrals: Nesha Purvis MD [Primary Care Provider] - Consultation Done:: Dany Calderon CRNA. Additional Patient Instructions (free text): Aspirin 81 mg PO daily.[OTC medication; cheaper in a bottle of 100]. Vitamin D3 2000 units PO daily with food. [OTC medication; cheaper if brought in a bottle of 100]. Please make arrangements for patient to obtain vancomycin twice a day through the [facility] Daily dressing changes with Dakin solution for right foot wound at [facility]. Inform physician if wound looks worse/infected Inform anesthesia F PICC line starts getting bad. Appt with dr. Okeefe in 1 week on 05-20-17 @ 1:30pm arrive at 1:00pm for paperwork , and patient to bring one hundred dollars at time of visit towards payment. Increase fluids. Have yogurt 6 oz PO BID and probiotics. You are on very strong antibiotics which can cause diarrhea. Appt with I.D. [infectious diseases] as outpatient last week in 05/2017 [ should be on antibiotics]. geriatric case manager to [facility]. Appointment with allergy /immunology in 2 months. [ when off all antibiotics]. CBC with differential, CMP, ESR CRP every week faxed to [phone] attention: Claude Corrales. Labs - cheaply done at [facility] - starting 05/19/17. Prescriptions (Any new or edited meds): Aspirin [Aspir-Low] 81 mg PO DAILY #100 tablet. Cholecalciferol [Vitamin D] 2,000 unit PO DAILY #100 capsule Ciprofloxacin HCl [Cipro] 500 mg PO BID #60 tablet metroNIDAZOLE [Flagyl] 500 mg PO Q8H #90 tablet Complete Home Medications List: Complete Home Medication List: Aspirin [Aspir-Low] 81 mg PO DAILY #100 tablet. 05/13/17 Cholecalciferol [Vitamin D] 2,000 unit PO DAILY #100 capsule 05/13/17 Ciprofloxacin HCl [Cipro] 500 mg PO BID #60 tablet 05/13/17 metroNIDAZOLE [Flagyl] 500 mg PO Q8H #90 tablet 05/13/17 Acetaminophen [Tylenol] 650 mg PO Q6H PRN tablet 05/31/17 Metoprolol Succinate [Toprol Xl] 50 mg PO DAILY@2100 #30 tablet.sa 05/31/17 Vancomycin HCl [Vancomycin] 1.5 gm IV Q12H #1 vial 05/31/17 Warfarin Sodium [Coumadin] 6 mg PO DAILY@1700 #30 tablet 05/31/17 traMADol HCL [Ultram] 50 mg PO Q4H PRN #45 tablet 05/31/17
[2017-05-13 15:09] VITALS: BP 138/84
== END 2017-05-13 20:30 | disposition home or self-care (01) ==
LOC: INTOOBSV 15:24 → MS 15:24
PROVIDERS: ADMIT Internal Medicine; ATTEND Internal Medicine
DX: M86.171 Other acute osteomyelitis, right ankle and foot (principal); I10 Essential (primary) hypertension; I82.811 Embolism and thrombosis of superficial veins of right lower extremity; T80.6 Other serum reactions; T50.Z95D Adverse effect of other vaccines and biological substances, subsequent encounter
CPT/HCPCS: 36415; 36569; 71010; 80202; 87081; 96365; 96366; G0378; G0379

== ENCOUNTER 2017-05-24 21:00 | Emergency (ER) | payer SELFPAY ==
--- NOTE | 2017-05-24 21:45 | ERNOTE ---
Abdominal HPI - Narrative Date of Service: 05/24/17 - General Chief Complaint: Abdominal Pain Time Seen by Provider: 05/24/17 21:32 Source: patient - Immun/Allergies/Home Medications Immunizatons: IMMUNIZATION HX Immunizations Up to Date Yes History of Influenza Vaccine No Hx Pneumococcal Vaccination No Allergies/Adverse Reactions: Allergies ampicillin [From Unasyn] Allergy (Severe, Verified 05/24/17 21:10) Hives Cephalosporins Allergy (Severe, Verified 05/24/17 21:10) Other Penicillins Allergy (Severe, Verified 05/24/17 21:10) Other sulbactam [From Unasyn] Allergy (Severe, Verified 05/24/17 21:10) Hives Home Medications: HOME MEDICATIONS Sodium Hypochlorite [Dakin's Solution 0.125%] 1 appl TP BID 05/12/17 [Last Taken Unknown] Vancomycin HCl in Dextrose 5 % [Vancomycin HCl 1G/200 ml Bag] 1 gm IV Q12H 05/12 [Last Taken Unknown] Aspirin [Aspir-Low] 81 mg PO DAILY #100 tablet. 05/13/17 [Last Taken Unknown] Cholecalciferol [Vitamin D] 2,000 unit PO DAILY #100 capsule 05/13/17 [Last Taken Unknown] Ciprofloxacin HCl [Cipro] 500 mg PO BID #60 tablet 05/13/17 [Last Taken Unknown] Lisinopril [Zestril] 10 mg PO BID #30 tablet 05/13/17 [Last Taken Unknown] Sodium Hypochlorite [Dakin's Solution 0.125%] 1 appl TP BID btl 05/13/17 [Last Taken Unknown] hydrALAZINE HCL [Hydralazine HCl] 25 mg PO BID #10 tablet 05/13/17 [Last Taken Unknown] metroNIDAZOLE [Flagyl] 500 mg PO Q8H #90 tablet 05/13/17 [Last Taken Unknown] Vancomycin/0.9 % Sod Chloride [Vanco 1 Gram/250 ml-0.9% NaCl] 1 gm IV BID #60 plast..bag 05/14/17 [Last Taken Unknown] HYDROcodone/ACETAMINOPHEN [[place] 5-325] 1 tab PO Q4H PRN #40 tab 05/25/17 [Last Taken Unknown] - History of Present Illness Narrative: This is a 61-year-old male who comes to the emergency department 2 days of increasing right lower quadrant abdominal pain. The patient had an open appendectomy performed many years ago. The patient was just in the hospital earlier in the week for an infected joint in his right foot. He is receiving antibiotics through a PICC line. The patient says that yesterday he had some mild pain when he got up and moved around. He had no nausea or vomiting. He had no fever. Things like bumps in the road or jarring would cause increased pain. The pain has gotten worse gradually and persistently throughout the day today. It is not the point where he can't move around at all without having significant pain. He says his bowel movements are unchanged from normal. Urination is no different. No blood in his urine. He had vomiting 3 days ago after brushing his teeth and tongue. No recurrence since then. No recent sick contacts that he is aware of, but he was in the hospital. Review of Systems - Review of Systems Constitutional: Present: no symptoms reported EYE: Present: no symptoms reported ENT: Present: no symptoms reported Respiratory: Present: no symptoms reported Cardiology: Present: no symptoms reported Gastrointestinal/Abdominal: Present: abdominal pain. Absent: nausea, vomiting, diarrhea Genitourinary: Present: no symptoms reported Musculoskeletal: Present: no symptoms reported Skin: Present: no symptoms reported Neurological: Present: no symptoms reported Endocrine: Present: no symptoms reported Hematologic/Lymphatic: Present: no symptoms reported Psych: Present: no symptoms reported All Other Systems: All systems neg except as marked - Patient's Past Medical History Patient History - Medical: No pertinent hx, Other Patient History - Cardiac/Respiratory: Hypertension Patient History - Cancer: No Hx of Cancer Patient History - Surgical Procedures: Appendectomy Patient History - Other: None - Family History Mother Family History - Medical: , Rheumatoid Arthritis Family History - Cardiac/Respiratory: CVA/Stroke Father Family History - Medical: - Social History Living Situations: alone Abuse History: No History of abuse Psych History: No pertinent hx Smoking Status: Never smoker Have you smoked in the past 12 months: No Do you dip or chew tobacco: No Alcohol Use: none Drug Use: none - Immunizations Immunizations Up to Date: Yes Hx Pneumococcal Vaccination: No History of Influenza Vaccine: No Physical Exam - Physical Exam General Appearance: Present: wd/wn, alert, no apparent distress, other - the patient appears acutely uncomfortable when he tries to walk. He has a noticeable limp towards the right side. Head Exam: Present: normal inspection, no evidence of injury Eye Exam: Normal inspection: bilateral, PERRL: bilateral, EOMI: bilateral Ears, Nose, Throat: Present: normal ENT inspection, normal pharynx Neck: Present: normal inspection, nontender Respiratory: Present: no respiratory distress, normal breath sounds, no accessory muscle use, lungs clear Cardiovascular/Chest: Present: regular rate, rhythm, no murmur, normal peripheral pulses, tachycardia, other - tachycardia around 120. I hear no murmurs rubs or gallops Gastrointestinal/Abdominal: Present: normal bowel sounds, soft, other - patient' s abdomen is soft nondistended. Involuntary guarding primarily in the right lower quadrant. No definite rebound. Negative Rovsing sign negative Schaefer's sign rectal exam is deferred Rectal Exam: Present: deferred Back Exam: Present: normal inspection, normal range of motion, no CVA tenderness , no vertebral tenderness Extremity Exam: Present: normal inspection, normal range of motion, no edema Neurological Exam: Present: alert, oriented, normal mood/affect, no motor/ sensory deficits Skin Exam: Present: normal color, warm/dry Lymphatic Exam: Present: no adenopathy ED Progress - Results and Orders Patient's Lab Results:: I have reviewed the patient's lab results. - Vital Signs Patient's Vital Signs:: I have reviewed the patient's vital signs. Vital Signs: Vital Signs 05/24/17 05/24/17 18:55 21:03 Temperature 37.1 C 37.2 C Pulse Rate 124 H Respiratory 16 Rate Blood Pressure 125/77 152/80 O2 Sat by Pulse 96 Oximetry - CT/Ultrasound CT/Ultrasound Narrative: Probably epipoloiic appendigitis of right colon. intermediate lesion dome of liver. No other explanation for pain - Progress/Reassessment Chief Complaint: Abdominal Pain Progress:: Improved Progress Note-Subjective: 05/25/17 00:30 The patient has been persistently tachycardic. This is been going on since he arrived in the emergency department. This was going on yesterday. Departure - Departure Clinical Impression: Epiploic appendagitis Disposition: Home self-care Condition: Stable Instructions: Mesenteric Adenitis, Pediatric Additional Instructions: As we discussed, the CAT scan shows 2 things. The first is that there is a 14 mm small lesion within the anterior dome of her liver. This is something which just needs to be followed up with. It is most likely something that has been there for a long time. There is no evidence this is cancer, but it does need to be checked up on #2 #2 you have something called epiploic appendagitis. This is an extremely painful process by which that along the colon wall twists on itself and that part of the fat will actually dye. This can be extremely painful for weeks. There is no treatment for it. There is nothing that needs to be done for it. What you to take the prescribed [place] to help with severe pain. No driving while taking this. It may make you dizzy or weak. He need to call your family doctor and set up a follow-up appointment. If you develop vomiting out of control, high fever, anything new or concerning he should return to the emergency department. Make sure that you follow up with your family doctor to have the lesion in her liver checked out. Return for new or worrisome symptoms Referrals: Nesha Purvis MD [Primary Care Provider] - Prescriptions: HYDROcodone/ACETAMINOPHEN [[place] 5-325] 1 tab PO Q4H PRN #40 tab PRN Reason: Pain
[2017-05-24 22:02] LABS: Hematocrit 37.5 % (42.0-52.0); Hemoglobin 12.8 gm/dL (13.5-18.0); Mean Corpuscular Hemoglobin 31.1 pg (27-31); Mean Corpuscular Hgb Conc 34.1 g/dl (32-36); Neutrophil # 7.4 K/mm3 (1.3-6.0); Platelet Count 222 K/mm3 (150-450); Red Blood Count 4.12 M/mm3 (4.7-6.0); Red Cell Distribution Width 13.2 % (11.5-14.0); White Blood Count 10.5 K/mm3 (4.0-10.5)
[2017-05-24] MEDS ORDERED: NORMAL SALINE 1,000 ML IV ONE (22:03)
[2017-05-24] MEDS ORDERED: MORPHINE SULFATE 4 MG/ML SYRG IV ONE (22:05)
[2017-05-24] MEDS ORDERED: ONDANSETRON HCL/PF 2 MG/ML VIAL IV ONE (22:05)
[2017-05-24] MEDS ORDERED: DIATRIZOATE MEGLUMINE, SODIUM 30 ML BTL PO ONE (22:10)
[2017-05-24] MEDS ORDERED: DIATRIZOATE MEGLUMINE, SODIUM 30 ML BTL ONE (22:12)
[2017-05-24] MEDS ORDERED: ONDANSETRON HCL/PF 2 MG/ML VIAL ONE (22:12)
[2017-05-24] MEDS ORDERED: MORPHINE SULFATE 4 MG/ML SYRG ONE (22:12)
[2017-05-24 22:13] LABS: Urine Bilirubin Negative (NEGATIVE); Urine Blood Negative /ul (NEGATIVE); Urine Ketone Negative (NEGATIVE); Urine Nitrite Negative (NEGATIVE); Urine Protein Negative (NEGATIVE); Urine Urobilinogen Normal (NORMAL); Urine pH 5.5 pH (5.0-7.0)
[2017-05-24 22:14] LABS: Urine Appearance Clear; Urine Bacteria TRACE; Urine Color Yellow; Urine RBC None Seen /hpf (0-5); Urine WBC 0-5 /hpf (0-5)
[2017-05-24 22:16] LABS: Albumin * 2.9 gm/dl (3.4-5.0); BUN/Creatinine Ratio 19.1 (9.0-21.6); Bilirubin, Total 0.6 mg/dL (0.0-1.1); Ca. Corrected For Albumin 8.7 mg/dL (8.4-10.2); Calcium * 8.1 mg/dL (7.9-10.9); Carbon Dioxide 25.4 mmol/L (24-32.6); Potassium 4.4 mmol/L (3.4-4.6); Total Protein 7.4 gm/dL (6.2-8.2)
[2017-05-25 00:39] VITALS: BP 116/75
== END 2017-05-25 00:40 | disposition home or self-care (01) ==
LOC: ER 21:00
DX: K63.89 Other specified diseases of intestine (principal)
CPT/HCPCS: 36415; 74177; 80053; 81001; 83690; 85025; 96374; 96375; 99284; J2405

== ENCOUNTER 2017-05-26 19:19 | Inpatient (IN) | payer SELFPAY ==
[2017-05-26] MEDS ORDERED: NORMAL SALINE 1,000 ML IV ONE (19:35)
[2017-05-26] MEDS ORDERED: ACETAMINOPHEN 325 MG TABLET PO ONE (19:37)
[2017-05-26] MEDS ORDERED: MORPHINE SULFATE 4 MG/ML SYRG ONE (19:38)
[2017-05-26] MEDS ORDERED: MORPHINE SULFATE 4 MG/ML SYRG IV ONE (19:38)
[2017-05-26] MEDS ORDERED: ACETAMINOPHEN 325 MG TABLET ONE (19:43)
--- NOTE | 2017-05-26 19:43 | ERNOTE ---
<Tello Estrada - Last Filed: 05/26/17 19:51> Medical Problem HPI - Narrative Date of Service: 05/26/17 - General Chief Complaint: Fever Time Seen by Provider: 05/26/17 19:22 Source: patient Exam Limitations: no limitations - Immun/Allergies/Home Medications Immunizations: IMMUNIZATION HX Immunizations Up to Date No History of Influenza Vaccine No Hx Pneumococcal Vaccination No Allergies/Adverse Reactions: Allergies ampicillin [From Unasyn] Allergy (Severe, Verified 05/24/17 21:10) Hives Cephalosporins Allergy (Severe, Verified 05/24/17 21:10) Other Penicillins Allergy (Severe, Verified 05/24/17 21:10) Other sulbactam [From Unasyn] Allergy (Severe, Verified 05/24/17 21:10) Hives Home Medications: HOME MEDICATIONS Sodium Hypochlorite [Dakin's Solution 0.125%] 1 appl TP BID 05/12/17 [Last Taken Unknown] Vancomycin HCl in Dextrose 5 % [Vancomycin HCl 1G/200 ml Bag] 1 gm IV Q12H 05/12 [Last Taken Unknown] Aspirin [Aspir-Low] 81 mg PO DAILY #100 tablet. 05/13/17 [Last Taken Unknown] Cholecalciferol [Vitamin D] 2,000 unit PO DAILY #100 capsule 05/13/17 [Last Taken Unknown] Ciprofloxacin HCl [Cipro] 500 mg PO BID #60 tablet 05/13/17 [Last Taken Unknown] Lisinopril [Zestril] 10 mg PO BID #30 tablet 05/13/17 [Last Taken Unknown] Sodium Hypochlorite [Dakin's Solution 0.125%] 1 appl TP BID btl 05/13/17 [Last Taken Unknown] hydrALAZINE HCL [Hydralazine HCl] 25 mg PO BID #10 tablet 05/13/17 [Last Taken Unknown] metroNIDAZOLE [Flagyl] 500 mg PO Q8H #90 tablet 05/13/17 [Last Taken Unknown] Vancomycin/0.9 % Sod Chloride [Vanco 1 Gram/250 ml-0.9% NaCl] 1 gm IV BID #60 plast..bag 05/14/17 [Last Taken Unknown] HYDROcodone/ACETAMINOPHEN [[place] 5-325] 1 tab PO Q4H PRN #40 tab 08/20/17 [Last Taken Unknown] - History of Present History Narrative: Patient presents for fever. He was receiving ABx at the [facility] for osteomyelitis and was noted to have fever, elevated HR, increased pain so sent here. He states he has severe pain right low abdomen. HE had CT 1 day ago for this - non-surgical. He relates on-going pain. Heahs some pain shooting dwon his right leg. no vomiting. Still taking fluids. No vomiting. Pain severe, constant. Timing: constant Severity: severe Modifying Factors - (Improves): Present: other - nothing Modifying Factors - (Worsens): Present: other - nothing Review of Systems - Review of Systems Constitutional: Present: fever ENT: Present: no symptoms reported Respiratory: Absent: shortness of breath Cardiology: Absent: chest pain Gastrointestinal/Abdominal: Present: See HPI Genitourinary: Absent: dysuria Neurological: Absent: weakness All Other Systems: All systems neg except as marked - Patient's Past Medical History Patient History - Medical: No pertinent hx, Other Patient History - Cardiac/Respiratory: Hypertension Patient History - Cancer: No Hx of Cancer Patient History - Surgical Procedures: Appendectomy Patient History - Other: None - Family History Mother Family History - Medical: , Rheumatoid Arthritis Family History - Cardiac/Respiratory: CVA/Stroke Father Family History - Medical: - Social History Living Situations: home Abuse History: No History of abuse Psych History: No pertinent hx Smoking Status: Former smoker Alcohol Use: none Drug Use: none - Immunizations Immunizations Up to Date: No Hx Pneumococcal Vaccination: No History of Influenza Vaccine: No Physical Exam - Physical Exam General Appearance: Present: alert Head Exam: Present: normal inspection, no evidence of injury Eye Exam: Normal inspection: bilateral, PERRL: bilateral Ears, Nose, Throat: Present: dry mucous membranes. Absent: pharyngeal swelling , tonsillar exudate Neck: Present: normal inspection Respiratory: Present: no respiratory distress, normal breath sounds, no accessory muscle use, lungs clear Cardiovascular/Chest: Present: normal peripheral pulses, tachycardia Gastrointestinal/Abdominal: Present: normal bowel sounds, nondistended, soft, other - RLQ tendenress, no rebound Back Exam: Present: no CVA tenderness Extremity Exam: Present: other - right foot bandages in place. no clear evidence of nec fasc Neurological Exam: Present: alert, no motor/sensory deficits Skin Exam: Present: normal color, warm/dry ED Progress - Vital Signs Vital Signs: Vital Signs 05/26/17 05/26/17 19:03 19:21 Temperature 38.3 C H 37.7 C H Pulse Rate 132 H Respiratory 25 H Rate Blood Pressure 104/78 115/73 O2 Sat by Pulse 97 Oximetry - Progress/Reassessment Chief Complaint: Fever - Transfer of Care Physician Sign Out: Tello Estrada Receiving Physician: Sedrick Latif Pending Results: Labs, Pain-control Expected Disposition: Admit Departure - Departure Clinical Impression: Fever Qualifiers: Fever type: unspecified Qualified Code(s): R50.9 - Fever, unspecified DVT (deep venous thrombosis) Qualifiers: DVT location: lower extremity Affected thrombotic vein of extremity: popliteal Chronicity: acute Laterality: right Qualified Code(s): I82.431 - Acute embolism and thrombosis of right popliteal vein Disposition: [facility] Condition: Fair <Sedrick Latif - Last Filed: 05/27/17 05:33> Medical Problem HPI - Immun/Allergies/Home Medications Immunizations: IMMUNIZATION HX Immunizations Up to Date No History of Influenza Vaccine No Hx Pneumococcal Vaccination No Physical Exam - Physical Exam General Appearance: Present: alert, no apparent distress Head Exam: Present: normal inspection Gastrointestinal/Abdominal: Present: other - RLQ tendenress, no rebound. Pain much less now then on presentation Extremity Exam: Present: other - right foot bandages in place. no clear evidence of nec fasc. Right thigh tender, firm medially and warm. 1+ edema mid tibia. Neurological Exam: Present: alert, no motor/sensory deficits ED Progress - Results and Orders Patient's Lab Results:: I have reviewed the patient's lab results. Results and Orders: Laboratory Tests 05/26/17 05/26/17 05/26/17 19:50 19:50 19:50 WBC 10.8 H Hgb 12.0 L Hct 35.3 L Plt Count 185 Neutrophils % (Manual) 90 H D-Dimer Sodium 134 Plasma Sodium 135 Potassium 4.3 Chloride 99 BUN 22 Creatinine 1.34 BUN/Creatinine Ratio 16.4 Random Glucose 161 H Lactic Acid, Venous 2.1 H* Calcium 7.8 L Total Bilirubin 0.4 AST 10 ALT 21 Alkaline Phosphatase 80 Troponin I Less than 0.017 C-Reactive Prot, Quant 12.3 H Total Protein 6.2 Albumin 2.4 L Lipase 81 Procalcitonin Urine Color Urine Appearance Urine pH Ur Specific [place] Urine Protein Urine Glucose (UA) Urine Ketones Urine Blood Urine Nitrate Urine Bilirubin Urine Urobilinogen Ur Leukocyte Esterase Urine RBC Urine WBC Ur Epithelial Cells Other Crystals Urine Bacteria Urine Mucus Urine Culture Comments 05/26/17 05/26/17 05/26/17 19:50 19:50 21:35 WBC Hgb Hct Plt Count Neutrophils % (Manual) D-Dimer Greater than 10.00 H Sodium Plasma Sodium Potassium Chloride BUN Creatinine BUN/Creatinine Ratio Random Glucose Lactic Acid, Venous Calcium Total Bilirubin AST ALT Alkaline Phosphatase Troponin I C-Reactive Prot, Quant Total Protein Albumin Lipase Procalcitonin 0.29 Urine Color Yellow Urine Appearance Clear Urine pH 5.5 Ur Specific [place] 1.020 Urine Protein Negative Urine Glucose (UA) 250 H Urine Ketones Negative Urine Blood Negative Urine Nitrate Negative Urine Bilirubin Negative Urine Urobilinogen Normal Ur Leukocyte Esterase Negative Urine RBC None seen Urine WBC Trace Ur Epithelial Cells Trace Other Crystals Trace Urine Bacteria 1+ H Urine Mucus Few - 1+ H Urine Culture Comments No culture indicated 05/26/17 22:45 WBC Hgb Hct Plt Count Neutrophils % (Manual) D-Dimer Sodium Plasma Sodium Potassium Chloride BUN Creatinine BUN/Creatinine Ratio Random Glucose Lactic Acid, Venous 1.3 Calcium Total Bilirubin AST ALT Alkaline Phosphatase Troponin I C-Reactive Prot, Quant Total Protein Albumin Lipase Procalcitonin Urine Color Urine Appearance Urine pH Ur Specific [place] Urine Protein Urine Glucose (UA) Urine Ketones Urine Blood Urine Nitrate Urine Bilirubin Urine Urobilinogen Ur Leukocyte Esterase Urine RBC Urine WBC Ur Epithelial Cells Other Crystals Urine Bacteria Urine Mucus Urine Culture Comments - Vital Signs Patient's Vital Signs:: I have reviewed the patient's vital signs. Vital Signs: Vital Signs 05/26/17 05/26/17 05/26/17 19:03 19:21 20:16 Temperature 38.3 C H 37.7 C H Pulse Rate 132 H 122 H Respiratory 25 H 26 H Rate Blood Pressure 104/78 115/73 116/76 O2 Sat by Pulse 97 95 Oximetry 05/26/17 20:37 Temperature Pulse Rate 123 H Respiratory 17 Rate Blood Pressure 112/79 O2 Sat by Pulse 96 Oximetry - CT/Ultrasound CT/Ultrasound Narrative: Right LE venous doppler: Duplex Doppler grayscale and color interrogation of the right lower extremity deep venous system was performed. There is extensive echogenic noncompressible occlusive thrombus within the deep venous system of the right lower extremity extending from the level of the proximal superficial femoral vein to the popliteal vein. Additionally, there is echogenic noncompressible thrombus within the right posterior tibial vein and within the veins at the level of the right calf. There is no evidence of thrombus within the right common femoral vein or interrogated greater saphenous vein. - Progress/Reassessment Progress:: Unchanged Progress Note-Subjective: 05/26/17 20:45 Lactic acid elevated. Examined patient. he states his pain is much improved in his abdomen but his thigh is still the most pain. 05/26/17 21:22 d-dimer greater than 10, venous dopper ordered. 05/27/17 00:[address] Page personal insurance advisor for ortho due to the patient having surgery by Dr. Lorenzo less than an month ago. Pt will be treated medically but may have reduced healing due to venous stasis due to the DVT. 05/27/17 00:26 Spoke with Jacoby Isidro [facility] hospitalist, we agreed on observation admit.
[2017-05-26 19:57] LABS: Hematocrit 35.3 % (42.0-52.0); Mean Cell Volume 91.2 fl (78-100); Mean Platelet Volume 9.5 fl (6.0-9.5); Platelet Count 185 K/mm3 (150-450); Red Blood Count 3.87 M/mm3 (4.7-6.0); White Blood Count 10.8 K/mm3 (4.0-10.5)
[2017-05-26 19:58] LABS: Total Cells Counted 100
[2017-05-26 20:16] LABS: Troponin I Less than 0.017 ng/ml (0.00-0.10)
[2017-05-26 20:18] LABS: ALT 21 U/L (19-67); AST 10 U/L (0-48); Albumin * 2.4 gm/dl (3.4-5.0); Alkaline Phosphatase * 80 U/L (50-170); Anion Gap 13.7 mmol/L (6.8-13.8); BUN/Creatinine Ratio 16.4 (9.0-21.6); Bilirubin, Total 0.4 mg/dL (0.0-1.1); Blood Urea Nitrogen 22 mg/dL (6-23); CRP 12.3 mg/dL (0.0-0.9); Ca. Corrected For Albumin 8.8 mg/dL (8.4-10.2); Calcium * 7.8 mg/dL (7.9-10.9); Carbon Dioxide 25.6 mmol/L (24-32.6); Chloride 99 mmol/L (97-106); Glucose * 161 mg/dL (70-110); Lipase 81 U/L (73-393); Potassium 4.3 mmol/L (3.4-4.6); Sodium 134 mmol/L (132-142); Total Protein 6.2 gm/dL (6.2-8.2)
[2017-05-26] MEDS ORDERED: NORMAL SALINE 1,000 ML IV PRN (20:39)
[2017-05-26] MEDS: NORMAL SALINE 1,000 ML IV PRN ×2 (20:41→21:38)
[2017-05-26 20:51] LABS: Band 2 % (0-2.0); Eosinophil 1 % (0-3); Immature Granulocyte 3 (0-1); Lymphocyte 3 % (20-51); Monocyte 1 % (0-9); Neutrophil 90 % (42-75); Neutrophil # 9.7 K/mm3 (1.3-6.0)
[2017-05-26 20:54] LABS: Dohle Bodies 1+; Giant Platelets 1+; Platelet Estimate Normal (NORMAL); Toxic Granulation 2+
[2017-05-26 20:55] LABS: RBC Morphology Normal (NORMAL)
[2017-05-26 21:51] LABS: Urine Bilirubin Negative (NEGATIVE); Urine Blood Negative /ul (NEGATIVE); Urine Ketone Negative (NEGATIVE); Urine Nitrite Negative (NEGATIVE); Urine Protein Negative (NEGATIVE); Urine Urobilinogen Normal (NORMAL); Urine pH 5.5 pH (5.0-7.0)
[2017-05-26 22:04] LABS: Urine Appearance Clear; Urine Color Yellow
[2017-05-26 22:05] LABS: Urine Bacteria 1+; Urine RBC None Seen /hpf (0-5); Urine WBC TRACE /hpf (0-5)
[2017-05-26 22:06] LABS: Urine Mucus Few - 1+; Urine Other Crystal TRACE /hpf
[2017-05-26] MEDS ORDERED: MORPHINE SULFATE 2 MG/ML DISP.SYRIN ONE (22:08)
[2017-05-26] MEDS ORDERED: MORPHINE SULFATE 2 MG/ML DISP.SYRIN IV ONE (22:09)
[2017-05-27] MEDS ORDERED: ONDANSETRON HCL/PF 2 MG/ML VIAL IV ONE (00:28)
[2017-05-27] MEDS ORDERED: ONDANSETRON HCL/PF 2 MG/ML VIAL ONE (00:28)
[2017-05-27] MEDS ORDERED: ENOXAPARIN SODIUM 100 MG/ML SYRG SC ONE ×2 (00:28)
--- NOTE | 2017-05-27 02:38 | HP ---
Chief Complaint - Chief Complaint Date of Service: 05/27/17 Time of Service: 02:25 Chief Complaint: Right leg pain, fever History of Present Illness: 61 year old male patient with PMH of HTN and osteomyelitis, adm to the hospital with reports of fever and pain in right leg. On 05/01/17 pt had incision and drainage of right foot with excision of 2nd metatarsal head: secondary to osteomyelitis 2nd metatarsal head with abscess of right foot. He was discharge with out-pt antibiotic therapy vancomycin BID. Since Friday pt report fever and pain to right groin that has gotten progressively worst. In ER venous duplex showed DVT, WBC 10.8, D-Dimer 10.0, blood culture pending. While in ER Lovenox administered for DVT, EKG obtained showing sinus tachy. Pt had been sinus tachy on previous adm. He was given morphine for pain and 2 L bolus yet heart rate remains within the 130's. Will adm for pain control, DVT and manage heart rate. plan of care discussed with pt he verbalized understanding and agree. - Patient's Past Medical History Patient History - Medical: No pertinent hx, Other - osteomymyelitis 2nd metatarsal head Patient History - Cardiac/Respiratory: Hypertension, Other - Tachycardia Patient History - Cancer: No Hx of Cancer Patient History - Surgical Procedures: Appendectomy, Other Patient History - Other: None - Family History Mother Family History - Medical: , Rheumatoid Arthritis Family History - Cardiac/Respiratory: CVA/Stroke Father Family History - Medical: - Social History Living Situations: alone Abuse History: No History of abuse Psych History: No pertinent hx Smoking Status: Former smoker Have you smoked in the past 12 months: No Alcohol Use: none Drug Use: none - Immunizations Immunizations Up to Date: No Hx Pneumococcal Vaccination: No History of Influenza Vaccine: No Review Of Systems (GEN) - Review of Systems Generalized/Overall Review: Present: Weakness, Chills, Fever EENTM: Present: No Symptoms Reported Respiratory: Present: Cough Cardiac: Present: No Symptoms Reported Abdominal: Present: No Symptoms Reported Genitourinary: Present: No Symptoms Reported Musculoskeletal: Present: Other - right leg pain Neurological: Present: No Symptoms Reported Skin: Present: No Symptoms Reported Endocrine: Present: No Symptoms Reported Allergies/Adverse Reactions: Allergies Allergy/AdvReac Type Severity Reaction Status Date / Time ampicillin [From Unasyn] Allergy Severe Hives Verified 05/24/17 21:10 Cephalosporins Allergy Severe Other Verified 05/24/17 21:10 Penicillins Allergy Severe Other Verified 05/24/17 21:10 sulbactam [From Unasyn] Allergy Severe Hives Verified 05/24/17 21:10 Home Medications: HOME MEDICATIONS Sodium Hypochlorite [Dakin's Solution 0.125%] 1 appl TP BID 05/12/17 [Last Taken Unknown] Vancomycin HCl in Dextrose 5 % [Vancomycin HCl 1G/200 ml Bag] 1 gm IV Q12H 05/12 [Last Taken Unknown] Aspirin [Aspir-Low] 81 mg PO DAILY #100 tablet. 05/13/17 [Last Taken Unknown] Cholecalciferol [Vitamin D] 2,000 unit PO DAILY #100 capsule 05/13/17 [Last Taken Unknown] Ciprofloxacin HCl [Cipro] 500 mg PO BID #60 tablet 05/13/17 [Last Taken Unknown] Lisinopril [Zestril] 10 mg PO BID #30 tablet 05/13/17 [Last Taken Unknown] Sodium Hypochlorite [Dakin's Solution 0.125%] 1 appl TP BID btl 05/13/17 [Last Taken Unknown] hydrALAZINE HCL [Hydralazine HCl] 25 mg PO BID #10 tablet 05/13/17 [Last Taken Unknown] metroNIDAZOLE [Flagyl] 500 mg PO Q8H #90 tablet 05/13/17 [Last Taken Unknown] Vancomycin/0.9 % Sod Chloride [Vanco 1 Gram/250 ml-0.9% NaCl] 1 gm IV BID #60 plast..bag 05/14/17 [Last Taken Unknown] HYDROcodone/ACETAMINOPHEN [[place] 5-325] 1 tab PO Q4H PRN #40 tab 05/25/17 [Last Taken Unknown] Exam - Exam Vital Signs: Vital Signs - Last Taken Temp 39.1 C H 05/27/17 01:44 Pulse 132 H 05/27/17 01:44 Resp 18 05/27/17 01:44 BP 116/71 05/27/17 01:44 Pulse Ox 93 05/27/17 01:44 Constitutional: Present: Alert, Oriented x3, Cooperative, No distress, Middle aged ENT Exam: Present: normal ENT inspection Eye Exam: bilateral eye: normal inspection Neck: Present: full range of motion Back Exam: Present: normal inspection Breasts: Present: Exam deferred Respiratory: Present: chest non-tender, normal breath sounds, no respiratory distress Cardiovascular/Chest: Present: normal peripheral pulses, regular rate, rhythm Abdomen: Present: Normal bowel sounds, soft, nontender, nondistended /Rectal: Present: Exam deferred Extremity: Present: calf tenderness, leg pain, slow capillary refill, swelling Skin Exam: Present: normal color, warm/dry Neurologic: Present: oriented x 3 Appearance: Present: appropriate appearance, appropriate insight Eye contact: Present: cooperative, good eye contact Thoughts: Present: normal thought pattern Diagnostic Studies: Laboratory Results WBC 10.8 K/mm3 (4.0-10.5) H 05/26/17 19:50 RBC 3.87 M/mm3 (4.7-6.0) L 05/26/17 19:50 Hgb 12.0 gm/dL (13.5-18.0) L 05/26/17 19:50 Hct 35.3 % (42.0-52.0) L 05/26/17 19:50 MCV 91.2 fl (78-100) 05/26/17 19:50 MCH 31.0 pg (27-31) 05/26/17 19:50 MCHC 34.0 g/dl (32-36) 05/26/17 19:50 RDW 13.0 % (11.5-14.0) 05/26/17 19:50 Plt Count 185 K/mm3 (150-450) 05/26/17 19:50 MPV 9.5 fl (6.0-9.5) 05/26/17 19:50 Neutrophils % (Manual) 90 % (42-75) H 05/26/17 19:50 Band Neuts % (Manual) 2 % (0-2.0) 05/26/17 19:50 Lymphocytes % (Manual) 3 % (20-51) L 05/26/17 19:50 Monocytes % (Manual) 1 % (0-9) 05/26/17 19:50 Eosinophils % (Manual) 1 % (0-3) 05/26/17 19:50 Immature Granulocytes 3 (0-1) H 05/26/17 19:50 Neutrophils # (Manual) 9.7 K/mm3 (1.3-6.0) H 05/26/17 19:50 Lymphocytes # (Manual) 0.3 k/mm3 (1.5-3.5) L 05/26/17 19:50 Monocytes # (Manual) 0.1 k/mm3 (0.0-1.0) 05/26/17 19:50 Eosinophils # (Manual) 0.1 k/mm3 (0.0-0.7) 05/26/17 19:50 Toxic Granulation 2+ 05/26/17 19:50 Toxic Vacuolation 1+ 05/26/17 19:50 Dohle Bodies 1+ 05/26/17 19:50 Platelet Estimate Normal (NORMAL) 05/26/17 19:50 Giant Platelets 1+ 05/26/17 19:50 RBC Morphology Normal (NORMAL) 05/26/17 19:50 D-Dimer Greater than 10.00 mg/L (0.19-0.49) H 05/26/17 19:50 Sodium 134 mmol/L (132-142) 05/26/17 19:50 Plasma Sodium 135 mmol/L (130-142) 05/26/17 19:50 Potassium 4.3 mmol/L (3.4-4.6) 05/26/17 19:50 Chloride 99 mmol/L (97-106) 05/26/17 19:50 Carbon Dioxide 25.6 mmol/L (24-32.6) 05/26/17 19:50 Anion Gap 13.7 mmol/L (6.8-13.8) 05/26/17 19:50 BUN 22 mg/dL (6-23) 05/26/17 19:50 Creatinine 1.34 mg/dL (0.4-1.4) 05/26/17 19:50 Est GFR (Non-Af Amer) 58 mL/min (60-130) L 05/26/17 19:50 BUN/Creatinine Ratio 16.4 (9.0-21.6) 05/26/17 19:50 Random Glucose 161 mg/dL (70-110) H 05/26/17 19:50 Lactic Acid, Venous 1.3 mmol/L (0.4-1.9) 05/26/17 22:45 Calcium 7.8 mg/dL (7.9-10.9) L 05/26/17 19:50 Calcium Adj for Albumin 8.8 mg/dL (8.4-10.2) 05/26/17 19:50 Total Bilirubin 0.4 mg/dL (0.0-1.1) 05/26/17 19:50 AST 10 U/L (0-48) 05/26/17 19:50 ALT 21 U/L (19-67) 05/26/17 19:50 Alkaline Phosphatase 80 U/L (50-170) 05/26/17 19:50 Troponin I Less than 0.017 ng/ml (0.00-0.10) 05/26/17 19:50 C-Reactive Prot, Quant 12.3 mg/dL (0.0-0.9) H 05/26/17 19:50 Total Protein 6.2 gm/dL (6.2-8.2) 05/26/17 19:50 Albumin 2.4 gm/dl (3.4-5.0) L 05/26/17 19:50 Lipase 81 U/L (73-393) 05/26/17 19:50 Procalcitonin 0.29 ng/mL (0.05-0.50) 05/26/17 19:50 Urine Color Yellow 05/26/17 21:35 Urine Appearance Clear 05/26/17 21:35 Urine pH 5.5 pH (5.0-7.0) 05/26/17 21:35 Ur Specific [place] 1.020 SP.GR. (1.005-1.030) 05/26/17 21:35 Urine Protein Negative mg/dL (NEGATIVE) 05/26/17 21:35 Urine Glucose (UA) 250 mg/dL (NEGATIVE) H 05/26/17 21:35 Urine Ketones Negative mg/dL (NEGATIVE) 05/26/17 21:35 Urine Blood Negative /ul (NEGATIVE) 05/26/17 21:35 Urine Nitrate Negative (NEGATIVE) 05/26/17 21:35 Urine Bilirubin Negative mg/dl (NEGATIVE) 05/26/17 21:35 Urine Urobilinogen Normal EU/dl (NORMAL) 05/26/17 21:35 Ur Leukocyte Esterase Negative /ul (NEGATIVE) 05/26/17 21:35 Urine RBC None seen /hpf (0-5) 05/26/17 21:35 Urine WBC Trace /hpf (0-5) 05/26/17 21:35 Ur Epithelial Cells Trace /hpf (0-5) 05/26/17 21:35 Other Crystals Trace /hpf (NONE) 05/26/17 21:35 Urine Bacteria 1+ (NONE) H 05/26/17 21:35 Urine Mucus Few - 1+ (NONE) H 05/26/17 21:35 Urine Culture Comments No culture indicated 05/26/17 21:35 Venous duplex:noncompressive thrombus at the proximal superficial femoral vein to the popliteal vein. additionally right posterior tibial vein and within veins at the level of the right calf. Assessment/Plan - Narrative Narrative: DVT- Extensive thombus seen on venous duplex Venous duplex:noncompressive thrombus at the proximal superficial femoral vein to the popliteal vein. additionally right posterior tibial vein and within veins at the level of the right calf. On adm D- Dimer 10.0 Lovenox given in ER. Continue Lovenox and consider bridge with Coumadin for discharge EKG- Sinus tach as was seen on previous adm tracing, monitor on telemetry. Pain control with morphine Osteomyelitis: S/P incision and drainage of right foot with excision of 2nd metatarsal head: secondary to osteomyelitis 2nd metatarsal head with abscess of right foot. Continue with vancomycin BID. Fever On adm Temp 38.5--->39.1 WBC 10.8 trending down blood cultures pending Continue with IV antbx Hypertension on adm BP 122/76 Code status : Full GI ppx: pepcid DVT ppx: Lovenox - Assessment/Plan (1) DVT (deep venous thrombosis) Problem: Acute Qualifiers: Chronicity: acute Laterality: left (2) Osteomyelitis of right foot Problem: Chronic (3) HTN (hypertension) Problem: Chronic Qualifiers:
[2017-05-27] MEDS ORDERED: MORPHINE SULFATE 2 MG/ML DISP.SYRIN IV PRN (02:47)
[2017-05-27] MEDS: ACETAMINOPHEN 325 MG TABLET PO PRN ×2 (02:59→12:58)
[2017-05-27] MEDS: NORMAL SALINE 1,000 ML IV PRN ×2 (03:00→14:44)
[2017-05-27] MEDS ORDERED: ONDANSETRON HCL/PF 2 MG/ML VIAL IV PRN (08:29)
[2017-05-27] MEDS: HYDROcodone/ACETAMINOPHEN 1 EACH TABLET PO PRN ×2 (08:57→20:54)
[2017-05-27] MEDS: CIPROFLOXACIN HCL 500 MG TABLET PO SCH ×2 (08:59→20:55)
[2017-05-27] MEDS: CHOLECALCIFEROL 1,000 UNIT CAPSULE PO SCH (08:59)
[2017-05-27] MEDS: SACCHAROMYCES BOULARDII 250 MG CAPSULE PO SCH ×2 (08:59→20:55)
[2017-05-27] MEDS: ASPIRIN 81 MG TABLET.DR PO SCH (09:00)
[2017-05-27] MEDS: metroNIDAZOLE 500 MG TABLET PO SCH ×2 (09:00→16:38)
[2017-05-27] MEDS: VANCOMYCIN HCL 1.5 GM in DEXTROSE 5 % IN WATER 500 ML IV SCH ×4 (10:06→20:56)
[2017-05-27] MEDS ORDERED: NORMAL SALINE 1,000 ML IV PRN (10:51)
[2017-05-27] MEDS: ENOXAPARIN SODIUM 100 MG/ML SYRG SC SCH (12:31)
[2017-05-27] MEDS ORDERED: METOPROLOL SUCCINATE 25 MG TABLET.SA PO ONE (16:00)
[2017-05-27] MEDS: METOPROLOL SUCCINATE 50 MG TABLET.SA PO SCH (20:55)
[2017-05-27] MEDS ORDERED: WARFARIN SODIUM 7.5 MG TABLET PO ONE (21:05)
[2017-05-27 21:42] LABS: Prothrombin Time (Patient) 11.9 Seconds (9.4-11.4)
[2017-05-27 21:43] LABS: INR 1.14 INR (0.90-1.10)
[2017-05-27] MEDS ORDERED: WARFARIN SODIUM 2.5 MG TABLET ONE (21:51)
[2017-05-27] MEDS ORDERED: WARFARIN SODIUM 5 MG TABLET ONE (21:51)
[2017-05-28] MEDS: ENOXAPARIN SODIUM 100 MG/ML SYRG SC SCH ×2 (00:10→11:56)
[2017-05-28] MEDS: metroNIDAZOLE 500 MG TABLET PO SCH ×3 (00:11→16:56)
[2017-05-28] MEDS: MORPHINE SULFATE 2 MG/ML DISP.SYRIN IV PRN ×2 (00:12→13:38)
[2017-05-28] MEDS: HYDROcodone/ACETAMINOPHEN 1 EACH TABLET PO PRN ×2 (02:25→07:35)
[2017-05-28] MEDS: NORMAL SALINE 1,000 ML IV PRN ×2 (03:32→18:39)
[2017-05-28 06:02] LABS: Hematocrit 27.9 % (42.0-52.0); Hemoglobin 9.5 gm/dL (13.5-18.0); Mean Cell Volume 90.6 fl (78-100); Mean Corpuscular Hemoglobin 30.8 pg (27-31); Mean Corpuscular Hgb Conc 34.1 g/dl (32-36); Mean Platelet Volume 9.4 fl (6.0-9.5); Platelet Count 139 K/mm3 (150-450); Red Blood Count 3.08 M/mm3 (4.7-6.0); Red Cell Distribution Width 13.2 % (11.5-14.0); White Blood Count 6.3 K/mm3 (4.0-10.5)
[2017-05-28 06:06] LABS: Total Cells Counted 100
[2017-05-28 06:10] LABS: INR 1.18 INR (0.90-1.10); Prothrombin Time (Patient) 12.3 Seconds (9.4-11.4)
[2017-05-28 06:13] LABS: Anion Gap 12.7 mmol/L (6.8-13.8); BUN/Creatinine Ratio 11.1 (9.0-21.6); Carbon Dioxide 22.9 mmol/L (24-32.6); Estimated Creat Clear 87.1; Potassium 3.6 mmol/L (3.4-4.6)
[2017-05-28 06:19] LABS: Band 9 % (0-2.0); Eosinophil 2 % (0-3); Lymphocyte 3 % (20-51); Monocyte 1 % (0-9); Neutrophil 85 % (42-75); Neutrophil # 5.4 K/mm3 (1.3-6.0); Platelet Estimate Normal (NORMAL); RBC Morphology Normal (NORMAL)
[2017-05-28] MEDS ORDERED: traMADol HCL 50 MG TABLET PO PRN (09:24)
[2017-05-28] MEDS: ASPIRIN 81 MG TABLET.DR PO SCH (09:28)
[2017-05-28] MEDS: VANCOMYCIN HCL 1.5 GM in DEXTROSE 5 % IN WATER 500 ML IV SCH ×4 (09:28→21:09)
[2017-05-28] MEDS: SACCHAROMYCES BOULARDII 250 MG CAPSULE PO SCH ×2 (09:28→21:06)
[2017-05-28] MEDS: CIPROFLOXACIN HCL 500 MG TABLET PO SCH ×2 (09:28→21:06)
[2017-05-28] MEDS: CHOLECALCIFEROL 1,000 UNIT CAPSULE PO SCH (09:29)
[2017-05-28] MEDS ORDERED: APIXABAN 2.5 MG TABLET PO SCH (09:30)
--- NOTE | 2017-05-28 09:32 | PN ---
Subjective - Date and Time Seen Date: 05/28/17 Time: 09:32 Subjective Narrative: shortness of breath improved. c/o of significant right leg pain. has not been up and walking. minimal activity. Objective - Review of Systems Generalized/Overall Review: Reports: Weakness, Malaise, Fatigue. Denies: Chills , Fever EENTM: Reports: No Symptoms Reported Respiratory: Reports: No Symptoms Reported Cardiac: Reports: No Symptoms Reported Abdominal: Reports: No Symptoms Reported Genitourinary Symptoms: Reports: No Symptoms Reported Musculoskeletal Complaints: Reports: Muscle Pain Neurological: Reports: No Symptoms Reported Skin: Reports: No Symptoms Reported Endocrine: Reports: No Symptoms Reported Misc: All systems neg except as marked - Vitals Vitals: Last Vital Signs Temp 37.3 C 05/28/17 07:07 Pulse 96 05/28/17 07:07 Resp 18 05/28/17 07:07 BP 125/72 05/28/17 07:07 Pulse Ox 96 05/28/17 07:07 - Abnormal Lab Findings Abnormal Lab Findings: Abnormal Lab Results 05/27/17 05/28/17 05/28/17 Range/Units 21:20 05:55 05:55 RBC 3.08 L (4.7-6.0) M/mm3 Hgb 9.5 L (13.5-18.0) gm/dL Hct 27.9 L (42.0-52.0) % Plt Count 139 L (150-450) K/mm3 Neutrophils % (Manual) 85 H (42-75) % Band Neuts % (Manual) 9 H (0-2.0) % Lymphocytes % (Manual) 3 L (20-51) % Lymphocytes # (Manual) 0.2 L (1.5-3.5) k/mm3 PT 11.9 H 12.3 H (9.4-11.4) Seconds INR (Anticoag Therapy) 1.14 H 1.18 H (0.90-1.10) INR Carbon Dioxide (24-32.6) mmol/L Random Glucose (70-110) mg/dL Calcium (7.9-10.9) mg/dL 05/28/17 Range/Units 05:55 RBC (4.7-6.0) M/mm3 Hgb (13.5-18.0) gm/dL Hct (42.0-52.0) % Plt Count (150-450) K/mm3 Neutrophils % (Manual) (42-75) % Band Neuts % (Manual) (0-2.0) % Lymphocytes % (Manual) (20-51) % Lymphocytes # (Manual) (1.5-3.5) k/mm3 PT (9.4-11.4) Seconds INR (Anticoag Therapy) (0.90-1.10) INR Carbon Dioxide 22.9 L (24-32.6) mmol/L Random Glucose 112 H D (70-110) mg/dL Calcium 7.0 L (7.9-10.9) mg/dL - Exam Constitutional: Present: Alert, Mild distress ENT Exam: Present: hearing grossly normal Neck: Present: full range of motion, supple Breasts: Present: Exam deferred Respiratory: Present: chest non-tender, decreased breath sounds - bases Cardiovascular/Chest: Present: normal peripheral pulses, regular rate, rhythm, tachycardia Abdomen: Present: soft, nontender, nondistended /Rectal: Present: Exam deferred Extremity: Present: normal inspection - left leg, leg pain - right leg Skin Exam: Present: normal color, warm/dry, no cyanosis Assessment/Plan Plan Narrative: DVT - right leg - extensive DVT seen right lower leg - currently on lovenox at 1 mg/kg - Coumadin 7.5 mg given 05/27/17 - Continue coumadin today - ? transition to eliquis at discharge - Poor pain management - try ultram for pain management - give one time dilaudid dose to try and help patient get over the bulk of the pain. PE, right lower lobe - per CTA of the chest done 05/27/17 - low clot burden - continue lovenox at 1 mg/kg and coumadin - ? transition to eliquis at discharge Osteomyelitis - continue Vancomycin 1 gm iv q 12 hours - continue ciprofloxacin and flagyl po - continue dressing changes BID as done at the annex prior to admission Fever - ? etiology - check labs in am - continue antibiotics - blood cultures pending HTN - vital signs q 4 hours Code status: Full code VTE: lovenox / coumadin GI proph: Pepcid - Problems/Diagnosis (1) Pulmonary embolus, right Problem: Acute (2) DVT (deep venous thrombosis) Problem: Acute Qualifiers: DVT location: lower extremity Affected thrombotic vein of extremity: unspecified vein of extremity Chronicity: acute Laterality: right Qualified Code(s): I82.401 - Acute embolism and thrombosis of unspecified deep veins of right lower extremity (3) Fever Problem: Acute (4) HTN (hypertension) Problem: Chronic Qualifiers: Hypertension type: essential hypertension Qualified Code(s): I10 - Essential (primary) hypertension (5) Osteomyelitis of right foot Problem: Chronic
--- NOTE | 2017-05-28 09:47 | ECHO ---
This report is available in the EMR
[2017-05-28] MEDS ORDERED: ONDANSETRON HCL/PF 2 MG/ML VIAL IV ONE (10:00)
[2017-05-28] MEDS ORDERED: HYDROmorphone HCL 1 MG/ML DISP.SYRIN IV ONE (10:00)
[2017-05-28] MEDS: ACETAMINOPHEN 325 MG TABLET PO PRN (14:39)
[2017-05-28] MEDS: WARFARIN SODIUM 7.5 MG TABLET PO SCH (16:56)
[2017-05-28] MEDS: METOPROLOL SUCCINATE 50 MG TABLET.SA PO SCH (21:07)
[2017-05-29] MEDS: metroNIDAZOLE 500 MG TABLET PO SCH ×4 (01:21→23:42)
[2017-05-29] MEDS: ENOXAPARIN SODIUM 100 MG/ML SYRG SC SCH ×3 (01:21→23:42)
[2017-05-29] MEDS: ACETAMINOPHEN 325 MG TABLET PO PRN (04:03)
[2017-05-29] MEDS: ONDANSETRON HCL/PF 2 MG/ML VIAL IV PRN ×2 (04:04→16:58)
[2017-05-29 06:24] LABS: Hematocrit 27.7 % (42.0-52.0); Hemoglobin 9.4 gm/dL (13.5-18.0); Mean Cell Volume 90.2 fl (78-100); Mean Corpuscular Hemoglobin 30.6 pg (27-31); Mean Corpuscular Hgb Conc 33.9 g/dl (32-36); Mean Platelet Volume 10.4 fl (6.0-9.5); Neutrophil # 4.1 K/mm3 (1.3-6.0); Neutrophil % 86.3 % (42-75.0); Platelet Count 147 K/mm3 (150-450); Red Blood Count 3.07 M/mm3 (4.7-6.0); Red Cell Distribution Width 13.2 % (11.5-14.0); White Blood Count 4.8 K/mm3 (4.0-10.5)
[2017-05-29 06:28] LABS: Prothrombin Time (Patient) 16.5 Seconds (9.4-11.4)
[2017-05-29 06:29] LABS: INR 1.59 INR (0.90-1.10)
[2017-05-29 06:30] LABS: Anion Gap 13.3 mmol/L (6.8-13.8); BUN/Creatinine Ratio 12.7 (9.0-21.6); Calcium * 7.3 mg/dL (7.9-10.9); Estimated Creat Clear 84.5; Potassium 3.3 mmol/L (3.4-4.6)
[2017-05-29] MEDS ORDERED: PROMETHAZINE HCL 12.5 MG in DEXTROSE 5 % IN WATER 50 ML IV PRN ×2 (07:09)
[2017-05-29] MEDS: NORMAL SALINE 1,000 ML IV PRN (08:43)
[2017-05-29] MEDS: CIPROFLOXACIN HCL 500 MG TABLET PO SCH ×2 (08:44→20:01)
[2017-05-29] MEDS: SACCHAROMYCES BOULARDII 250 MG CAPSULE PO SCH ×2 (08:44→20:00)
[2017-05-29] MEDS: CHOLECALCIFEROL 1,000 UNIT CAPSULE PO SCH (08:44)
[2017-05-29] MEDS: ASPIRIN 81 MG TABLET.DR PO SCH (08:44)
[2017-05-29] MEDS: VANCOMYCIN HCL 1.5 GM in DEXTROSE 5 % IN WATER 500 ML IV SCH ×4 (08:44→20:01)
--- NOTE | 2017-05-29 09:38 | PN ---
Subjective - Date and Time Seen Date: 05/29/17 Time: 09:38 Subjective Narrative: denies dyspnea. c/o nausea. no diarrhea. no hard stool. no blood in stool. no abdominal pain. up in chair. c/o bilat arm pain from elbow down. Objective - Review of Systems Generalized/Overall Review: Reports: No Symptoms Reported EENTM: Reports: No Symptoms Reported Respiratory: Reports: No Symptoms Reported Cardiac: Reports: No Symptoms Reported Abdominal: Reports: Nausea, Vomiting. Denies: Hematemesis, Abdominal Pain, Constipation, Diarrhea, Melena, Bright blood from rectum Genitourinary Symptoms: Denies: No Symptoms Reported Musculoskeletal Complaints: Reports: Joint Swelling, Muscle Pain, Other - bilat lower arm pain Neurological: Reports: No Symptoms Reported Skin: Reports: No Symptoms Reported Endocrine: Reports: No Symptoms Reported Misc: All systems neg except as marked - Vitals Vitals: Last Vital Signs Temp 36.3 C L 05/29/17 06:47 Pulse 99 05/29/17 06:47 Resp 18 05/29/17 06:47 BP 139/75 05/29/17 06:47 Pulse Ox 95 05/29/17 06:47 - Abnormal Lab Findings Abnormal Lab Findings: Abnormal Lab Results 05/29/17 05/29/17 05/29/17 Range/Units 05:45 05:45 05:45 RBC 3.07 L (4.7-6.0) M/mm3 Hgb 9.4 L (13.5-18.0) gm/dL Hct 27.7 L (42.0-52.0) % Plt Count 147 L (150-450) K/mm3 MPV 10.4 H (6.0-9.5) fl Immature Gran % (Auto) 1.30 H (0.001-0.429) % Immature Gran # (Auto) 0.06 H (0.000-0.0310) K/mm3 Neutrophils % 86.3 H (42-75.0) % Lymphocytes % 6.7 L (20-51) % Lymphocytes # 0.3 L (1.5-3.5) k/mm3 PT 16.5 H (9.4-11.4) Seconds INR (Anticoag Therapy) 1.59 H (0.90-1.10) INR Potassium 3.3 L (3.4-4.6) mmol/L Carbon Dioxide 22.0 L (24-32.6) mmol/L Random Glucose 120 H (70-110) mg/dL Calcium 7.3 L (7.9-10.9) mg/dL - Exam Constitutional: Present: Alert, Mild distress ENT Exam: Present: hearing grossly normal Neck: Present: full range of motion, supple Breasts: Present: Exam deferred Respiratory: Present: lungs clear, normal breath sounds Cardiovascular/Chest: Present: normal peripheral pulses, regular rate, rhythm, no chest tenderness. Absent: tachycardia Abdomen: Present: soft, nontender, nondistended /Rectal: Present: Exam deferred Extremity: Present: other - bilat arm swelling from elbow to fingers that are tender to touch. 2+ pitting edema RLL. Skin Exam: Present: normal color, warm/dry, no cyanosis Assessment/Plan Plan Narrative: DVT - right leg - extensive DVT seen right lower leg - currently on lovenox at 1 mg/kg - Coumadin 7.5 mg given daily - continue - Poor pain management - try ultram for pain management PE, right lower lobe - per CTA of the chest done 05/27/17 - low clot burden - continue lovenox at 1 mg/kg and coumadin Osteomyelitis - continue Vancomycin 1 gm iv q 12 hours - continue ciprofloxacin and flagyl po - continue dressing changes BID as done at the annex prior to admission Fever - ? etiology - check labs in am - continue antibiotics - blood cultures pending Bilat arm pain and swelling - pain worst in hands and wrist - will stop IV fluids - ? fluid overloaded vs gout vs other etiology - check BNP, check uric acid Hypokalemia - replace PO - recheck labs in am. HTN - vital signs q 4 hours Code status: Full code VTE: lovenox / coumadin GI proph: Pepcid - Problems/Diagnosis (1) Pulmonary embolus, right Problem: Acute (2) DVT (deep venous thrombosis) Problem: Acute Qualifiers: DVT location: lower extremity Affected thrombotic vein of extremity: unspecified vein of extremity Chronicity: acute Laterality: right Qualified Code(s): I82.401 - Acute embolism and thrombosis of unspecified deep veins of right lower extremity (3) Fever Problem: Acute (4) HTN (hypertension) Problem: Chronic Qualifiers: Hypertension type: essential hypertension Qualified Code(s): I10 - Essential (primary) hypertension (5) Osteomyelitis of right foot Problem: Chronic (6) Hypokalemia Problem: Acute (7) Bilateral arm pain Problem: Acute
[2017-05-29 09:51] LABS: Uric Acid 3.6 mg/dL (2.6-7.2)
[2017-05-29] MEDS ORDERED: POTASSIUM CHLORIDE 20 MEQ TABLET.SA PO ONE (11:15)
[2017-05-29] MEDS ORDERED: FUROSEMIDE 10 MG/ML VIAL IV ONE (13:58)
[2017-05-29] MEDS ORDERED: SPIRONOLACTONE 25 MG TABLET PO ONE (14:00)
[2017-05-29] MEDS: WARFARIN SODIUM 7.5 MG TABLET PO SCH (16:58)
[2017-05-29] MEDS: METOPROLOL SUCCINATE 50 MG TABLET.SA PO SCH (20:01)
[2017-05-30 06:54] LABS: Prothrombin Time (Patient) 22.6 Seconds (9.4-11.4)
[2017-05-30 06:55] LABS: INR 2.17 INR (0.90-1.10)
[2017-05-30] MEDS ORDERED: VANCOMYCIN HCL LEVEL XX ONE (08:30)
[2017-05-30] MEDS: SACCHAROMYCES BOULARDII 250 MG CAPSULE PO SCH ×2 (08:48→20:48)
[2017-05-30] MEDS: ASPIRIN 81 MG TABLET.DR PO SCH (08:48)
[2017-05-30] MEDS: CHOLECALCIFEROL 1,000 UNIT CAPSULE PO SCH (08:48)
[2017-05-30] MEDS: metroNIDAZOLE 500 MG TABLET PO SCH ×2 (08:48→17:11)
[2017-05-30] MEDS: CIPROFLOXACIN HCL 500 MG TABLET PO SCH ×2 (08:48→20:49)
[2017-05-30 09:06] LABS: Albumin * 1.8 gm/dl (3.4-5.0); Anion Gap 14.5 mmol/L (6.8-13.8); BUN/Creatinine Ratio 13.8 (9.0-21.6); Bilirubin, Total 0.3 mg/dL (0.0-1.1); Ca. Corrected For Albumin 8.8 mg/dL (8.4-10.2); Calcium * 7.4 mg/dL (7.9-10.9); Potassium 3.5 mmol/L (3.4-4.6); Total Protein 5.7 gm/dL (6.2-8.2)
[2017-05-30] MEDS: VANCOMYCIN HCL 1.5 GM in DEXTROSE 5 % IN WATER 500 ML IV SCH ×4 (10:02→20:44)
[2017-05-30] MEDS ORDERED: POTASSIUM CHLORIDE 20 MEQ TABLET.SA PO ONE (12:28)
[2017-05-30] MEDS: ENOXAPARIN SODIUM 100 MG/ML SYRG SC SCH (12:50)
--- NOTE | 2017-05-30 13:34 | PN ---
Subjective - Date and Time Seen Date: 05/30/17 Time: 13:34 Subjective Narrative: no shortness of breath. swelling in arms improved. Objective - Review of Systems Generalized/Overall Review: Reports: Weakness, Fatigue. Denies: Chills, Fever EENTM: Reports: No Symptoms Reported Respiratory: Reports: No Symptoms Reported Cardiac: Reports: Edema. Denies: Chest Pain, Syncope Abdominal: Reports: No Symptoms Reported Genitourinary Symptoms: Reports: No Symptoms Reported Musculoskeletal Complaints: Reports: Muscle Pain Neurological: Reports: No Symptoms Reported Skin: Reports: No Symptoms Reported Endocrine: Reports: No Symptoms Reported Misc: All systems neg except as marked - Vitals Vitals: Last Vital Signs Temp 36.4 C L 05/30/17 10:17 Pulse 94 05/30/17 12:00 Resp 18 05/30/17 10:17 BP 139/83 05/30/17 10:17 Pulse Ox 94 05/30/17 10:17 - Abnormal Lab Findings Abnormal Lab Findings: Abnormal Lab Results 05/30/17 05/30/17 Range/Units 06:00 08:29 PT 22.6 H (9.4-11.4) Seconds INR (Anticoag Therapy) 2.17 H (0.90-1.10) INR Carbon Dioxide 22.0 L (24-32.6) mmol/L Anion Gap 14.5 H (6.8-13.8) mmol/L Random Glucose 173 H D (70-110) mg/dL Calcium 7.4 L (7.9-10.9) mg/dL Total Protein 5.7 L (6.2-8.2) gm/dL Albumin 1.8 L (3.4-5.0) gm/dl - Exam Constitutional: Present: Alert, Oriented x3, Cooperative, No distress ENT Exam: Present: hearing grossly normal Neck: Present: full range of motion, supple Respiratory: Present: lungs clear, normal breath sounds, no accessory muscle use Cardiovascular/Chest: Present: regular rate, rhythm, no chest tenderness Abdomen: Present: soft, nontender, nondistended /Rectal: Present: Exam deferred Extremity: Present: normal inspection - left, lower extremity edema - 2+ right lower extremity Skin Exam: Present: normal color, warm/dry, no cyanosis Assessment/Plan Plan Narrative: DVT - right leg - extensive DVT seen right lower leg - currently on lovenox at 1 mg/kg - INR this am above 2, continue lovenox for another day - Coumadin 7.5 mg given daily - continue - pain management - try ultram for pain management PE, right lower lobe - per CTA of the chest done 05/27/17 - low clot burden - continue lovenox at 1 mg/kg and coumadin Osteomyelitis - continue Vancomycin 1 gm iv q 12 hours - continue ciprofloxacin and flagyl po - continue dressing changes BID as done at the [facility] prior to admission Bilat arm pain and swelling - pain worst in hands and wrist - IV fluids stopped 05/29/17 - BNP elevated on labs checked 05/29/17 - lasix iv and spironlactone po given 05/29/17 - I/Os negative 2100 in the last 24 hours with improved symptoms. Hypokalemia - replace PO - recheck labs in am. HTN - vital signs q 4 hours Code status: Full code VTE: lovenox / coumadin GI proph: Pepcid - Problems/Diagnosis (1) Pulmonary embolus, right Problem: Acute (2) DVT (deep venous thrombosis) Problem: Acute Qualifiers: DVT location: lower extremity Affected thrombotic vein of extremity: unspecified vein of extremity Chronicity: acute Laterality: right Qualified Code(s): I82.401 - Acute embolism and thrombosis of unspecified deep veins of right lower extremity (3) Fever Problem: Acute (4) HTN (hypertension) Problem: Chronic Qualifiers: Hypertension type: essential hypertension Qualified Code(s): I10 - Essential (primary) hypertension (5) Osteomyelitis of right foot Problem: Chronic (6) Hypokalemia Problem: Acute (7) Bilateral arm pain Problem: Acute
[2017-05-30] MEDS: WARFARIN SODIUM 6 MG TABLET PO SCH (17:11)
[2017-05-30] MEDS: METOPROLOL SUCCINATE 50 MG TABLET.SA PO SCH (20:49)
[2017-05-31] MEDS: metroNIDAZOLE 500 MG TABLET PO SCH ×3 (00:53→15:58)
[2017-05-31] MEDS: ENOXAPARIN SODIUM 100 MG/ML SYRG SC SCH ×2 (00:53→11:37)
[2017-05-31 05:39] LABS: Prothrombin Time (Patient) 30.1 Seconds (9.4-11.4)
[2017-05-31 05:42] LABS: Anion Gap 11.1 mmol/L (6.8-13.8); BUN/Creatinine Ratio 18.5 (9.0-21.6); Calcium * 7.5 mg/dL (7.9-10.9); Carbon Dioxide 25.7 mmol/L (24-32.6); Estimated Creat Clear 93.7; Potassium 3.8 mmol/L (3.4-4.6)
[2017-05-31 06:09] LABS: INR 2.89 INR (0.90-1.10)
[2017-05-31] MEDS: CIPROFLOXACIN HCL 500 MG TABLET PO SCH ×2 (08:51→20:11)
[2017-05-31] MEDS: SACCHAROMYCES BOULARDII 250 MG CAPSULE PO SCH ×2 (08:51→20:10)
[2017-05-31] MEDS: ASPIRIN 81 MG TABLET.DR PO SCH (08:51)
[2017-05-31] MEDS: CHOLECALCIFEROL 1,000 UNIT CAPSULE PO SCH (08:52)
[2017-05-31] MEDS: VANCOMYCIN HCL 1.5 GM in DEXTROSE 5 % IN WATER 500 ML IV SCH ×4 (08:54→20:12)
--- NOTE | 2017-05-31 13:39 | DS ---
(1) Pulmonary embolus, right Problem: Acute (2) DVT (deep venous thrombosis) Problem: Acute Qualifiers: DVT location: lower extremity Affected thrombotic vein of extremity: unspecified vein of extremity Chronicity: acute Laterality: right Qualified Code(s): I82.401 - Acute embolism and thrombosis of unspecified deep veins of right lower extremity (3) Fever Problem: Acute (4) HTN (hypertension) Problem: Chronic Qualifiers: Hypertension type: essential hypertension Qualified Code(s): I10 - Essential (primary) hypertension (5) Osteomyelitis of right foot Problem: Chronic (6) Hypokalemia Problem: Acute (7) Bilateral arm pain Problem: Acute Description of Stay: Date of admission: 05/26/17 Date of discharge: 05/31/17 Radiology: TTE (05/27/17) - mod LVH, ef 65-70%, RV mildly dilated, possible diastolic dysfunction CT Angiogram (05/27/17) - RLL PE (low clot burden) Description of Stay: Johnny is a 61 year old male who previously was admitted and had an I&D done of an abscess on his right foot. Patient presented to the ER with c/o fever, chills and right leg pain. d-dimer 10.0. US of left leg positive for multiple DVT. patient started on lovenox at 1mg / kg q 12 hours. continued medications for osteomyelitis that he had been receiving outpatient, including IV vanco, po flagyl and po ciprofloxacin. CT angio done 05/27/17 showed RLL PE with low clot burden. patient was transitioned to coumadin over the course of his stay. In addition, patient c/o bilat arm pain and swelling. labs for gout came back negative. bilat arm pain and swelling responded to IV lasix and po spirolactone. blood pressure meds were transitioned to Toprol xl. Patient was discharged once his INR had been therapeutic for 48 hours. A total time of 47 minutes was spent with the patient discussing the plan of care, prescription options, reconciliation of medications, preparing/dictating discharge summary. Procedures Performed: none Discharge Disposition: Home self care Disposition: Home self-care Condition: Undetermined Discharge Activity: Activity as tolerated Discharge Diet: General/regular food Referrals: Denisha Huntley MD [Primary Care Provider] - Additional Patient Instructions (free text): Continue IV antibiotics in the [facility] and dressing changes to foot. Antibiotics (Vancomycin) are to be given in the [facility] at 7 am and 7 pm. - Next dose is due at [address] Huntley with follow up with you in the annex. Eat yogurt with probiotics 2 times a day Up and walking often Vitamin D 2000 units daily - over the counter is fine. New medications: 1. Toprol xl 50 mg daily 2. ultram 50 mg q 4 hours as needed for pain. 3. Coumadin 6 mg daily - adjust per INR as directed. Stop hydrocodone, lisinopril and hydralazine. Prescriptions (Any new or edited meds): RX: Metoprolol Succinate [Toprol Xl] 50 mg PO DAILY@2100 #30 tablet. RX: traMADol HCL [Ultram] 50 mg PO Q4H PRN #45 tablet PRN Reason: Moderate Pain RX: Vancomycin HCl [Vancomycin] 1.5 gm IV Q12H #1 vial RX: Warfarin Sodium [Coumadin] 6 mg PO DAILY@1700 #30 tablet Complete Home Medications List: Complete Home Medication List: RX: Aspirin [Aspir-Low] 81 mg PO DAILY #100 tablet. 05/13/17 RX: Cholecalciferol [Vitamin D] 2,000 unit PO DAILY #100 capsule 05/13/17 RX: Ciprofloxacin HCl [Cipro] 500 mg PO BID #60 tablet 05/13/17 RX: metroNIDAZOLE [Flagyl] 500 mg PO Q8H #90 tablet 05/13/17 RX: Acetaminophen [Tylenol] 650 mg PO Q6H PRN tablet 05/31/17 RX: Metoprolol Succinate [Toprol Xl] 50 mg PO DAILY@2100 #30 tablet.sa 05/31/17 RX: Vancomycin HCl [Vancomycin] 1.5 gm IV Q12H #1 vial 05/31/17 RX: Warfarin Sodium [Coumadin] 6 mg PO DAILY@1700 #30 tablet 05/31/17 RX: traMADol HCL [Ultram] 50 mg PO Q4H PRN #45 tablet 05/31/17
[2017-05-31] MEDS: WARFARIN SODIUM 6 MG TABLET PO SCH (15:59)
[2017-05-31] MEDS: METOPROLOL SUCCINATE 50 MG TABLET.SA PO SCH (20:10)
[2017-05-31 20:13] VITALS: BP 142/78
== END 2017-05-31 23:35 | disposition home or self-care (01) | DRG 299 ==
LOC: ER 19:19 → MS 05-27 01:07 → OBSVTOIN 05-27 16:00
PROVIDERS: ADMIT Nurse Practitioner; ATTEND Internal Medicine
PROC: B246ZZZ Ultrasonography of Right and Left Heart (ICD-10-PCS; principal; 2017-05-27)
DX: I82.411 Acute embolism and thrombosis of right femoral vein (principal); I26.99 Other pulmonary embolism without acute cor pulmonale; M86.671 Other chronic osteomyelitis, right ankle and foot; E87.6 Hypokalemia; M79.632 Pain in left forearm; M79.631 Pain in right forearm; I10 Essential (primary) hypertension; Z79.82 Long term (current) use of aspirin
CPT/HCPCS: 36415; 71010; 71275; 80048; 80053; 80202; 81001; 83605; 83690; 83880; 84145; 84484; 84550; 85007; 85025; 85379; 85610; 86140; 87040; 87081; 93005; 93306; 93971; 96372; 96374; 96375; 99285; J2405